=== PATIENT | female | born 2000 | race Caucasian/White ===

== ENCOUNTER 2021-06-19 04:04 | Emergency (ER) | payer OTHER, SELFPAY ==
[2021-06-19 04:08] VITALS: BP 131/77; PULSE 108; RESP 16; TEMP 37.2; O2SAT 99; BMI 30.2
--- NOTE | 2021-06-19 04:25 | ED_ITS ---
HPI - Extremity Problem General Chief complaint: Extremity Injury, Upper Stated complaint: nail completely broken off Time Seen by Provider: 06/19/21 04:16 Source: patient Mode of arrival: ambulatory Limitations: no limitations History of Present Illness HPI Narrative: Patient comes to the emergency room complaining of pain in her right thumb. Patient states that 2 days ago she bumped her finger, the acrylic nail which is glued to the real nail, lifted up the nail. Patient complaining of localized pain. Patient denies pus drainage. No finger pain. Related Data Allergies Allergy/AdvReac Type Severity Reaction Status Date / Time diclofenac Allergy Rash Verified 06/19/21 04:11 Review of Systems 2 Review of Systems: Constitutional : No Weight loss, No Fever, No Chills, No Night Sweats, No Fatigue, No Malaise ENT/Mouth : No Hearing loss, No Ear Pain, No Nasal Congestion, No Sinus Pain, No Hoarseness, No sore throat, No Rhinorrhea, No Swallowing Difficulty Eyes: No Eye Pain, No Swelling, No Redness, No Foreign Body, No Discharge, No Vision Changes Cardiovascular : No Chest Pain, No SOB, No Dyspnea on Exertion, No Orthopnea, No Edema, No Palpitations Respiratory : No Cough, No Sputum, No Wheezing, No Smoke Exposure, No Dyspnea Gastrointestinal : No Nausea, No Vomiting, No Diarrhea, No Constipation, No abdominal Pain, No Hematochezia, No Melena Genitourinary : no irregular bleeding, No Dysuria, No Urinary Frequency, No Hematuria, No Urinary Incontinence, No Urgency, No Flank Pain, No Urinary Flow Changes, No Hesitancy Musculoskeletal : No joint pain, No Myalgias, No Joint Swelling Skin : Complaining of right thumb fingernail pain Neuro : No Weakness, No Numbness, No Paresthesias, No Loss of Consciousness, No Dizziness, No Headache Psych : No Anxiety/Panic, No Depression, No SI/HI/AH/VH, No Social Issues, Heme/Lymph: No Bruising, No Bleeding,No Lymphadenopathy Endocrine : No Polyuria, No Polydipsia, No Temperature Intolerance PMFSH Past Medical History Medical History No known health problems Social History Social History Advance Directives: No Advance Directives Information Provided: Yes Patient : No Physical Exam Vital Signs: Vital Signs: Last Vital Signs Temp 98.9 F 03/13/22 04:08 Pulse 108 H 06/19/21 04:08 Resp 16 06/19/21 04:08 BP 131/77 06/19/21 04:08 Pulse Ox 99 06/19/21 04:08 BMI result Body Mass Index 30.2 Const: Other: Constitutional : No Weight loss, No Fever, No Chills, No Night Sweats, No Fatigu e, No Malaise ENT/Mouth : No Hearing loss, No Ear Pain, No Nasal Congestion, No Sinus Pain, No Hoarseness, No sore throat, No Rhinorrhea, No Swallowing Difficulty Eyes: No Eye Pain, No Swelling, No Redness, No Foreign Body, No Discharge, No Vision Changes Cardiovascular : No Chest Pain, No SOB, No Dyspnea on Exertion, No Orthopnea, No Edema, No Palpitations Respiratory : No Cough, No Sputum, No Wheezing, No Smoke Exposure, No Dyspnea Gastrointestinal : No Nausea, No Vomiting, No Diarrhea, No Constipation, No abdominal Pain, No Hematochezia, No Melena Genitourinary : no irregular bleeding, No Dysuria, No Urinary Frequency, No Hematuria, No Urinary Incontinence, No Urgency, No Flank Pain, No Urinary Flow Changes, No Hesitancy Musculoskeletal : No joint pain, No Myalgias, No Joint Swelling Skin : No Skin Lesions. Half of the nail is lifted. There are no signs of infection. Neuro : No Weakness, No Numbness, No Paresthesias, No Loss of Consciousness, No Dizziness, No Headache Psych : No Anxiety/Panic, No Depression, No SI/HI/AH/VH, No Social Issues, Heme/Lymph: No Bruising, No Bleeding,No Lymphadenopathy Endocrine : No Polyuria, No Polydipsia, No Temperature Intolerance Course Course Course Narrative: I discussed with the patient that the options of treatment are to remove the whole nail along with acrylic nail, which would leave the it now exposed and will be very tender, versus leaving it as it is and allowing the nail to follow up by itself. I discussed with the patient, that leaving the nail as it is and covering it with Vaseline ointment would offer protection and comfort. to the bed nail. Discussed with the patient if she develops any signs of infection she needs to come back to emergency room. Patient was given bacitracin ointment small packets Discharge Plan Discharge Clinical Impression: Nail avulsion, finger Patient Disposition: Home, Self-Care Instructions: Nail Avulsion (ED) Additional Instructions: If you see any signs of infection such as redness, increased pain, pus drainage, fever , please return to emergency room immediately. Otherwise, follow-up with your primary care physician tomorrow. If you have any worsening or new symptoms, please return to the emergency room or call 911
--- NOTE | 2021-06-19 04:39 | PC.NURSE ---
Pt leaving ED without discharge paperwork after being evaluated by MD. While NATA Pendleton was cleaning room, pts wallet was found. This RN attempted to call pts cell phone number to let her know however the call when to voicemail. This RN leaving a message. NATA Pendleton leaving wallet with security.
== END 2021-06-19 04:43 | disposition home or self-care (01) ==
PROVIDERS: Emergency Provider Emergency Medicine; PCP Internal Medicine
DX: S61.101A Unspecified open wound of right thumb with damage to nail, initial encounter (principal); Y29.XXXA Contact with blunt object, undetermined intent, initial encounter; Y93.9 Activity, unspecified; Y92.9 Unspecified place or not applicable; Y99.9 Unspecified external cause status
CPT/HCPCS: 99283

== ENCOUNTER 2022-06-19 17:50 | Emergency (ER) | payer OTHER, SELFPAY | END 2022-06-19 20:41 | disposition left against medical advice (07) | LOC: HO.ED 20:40 | PROVIDERS: Emergency Provider Emergency Medicine; PCP Family Medicine | DX: M79.646 Pain in unspecified finger(s) (principal) ==

== ENCOUNTER 2023-11-23 10:10 | Outpatient (REF) | payer OTHER, SELFPAY ==
[2023-11-23 14:26] LABS: MANUAL DIFF FLAG NO
[2023-11-23 14:33] LABS: Basophils Percent Auto 0.6 % (0-2); Eosinophils Absolute Auto 0.1 X10*3/uL (0.0-0.4); Eosinophils Percent Auto 0.7 % (0-4); Hematocrit 39.4 % (37.0-47.0); Imm Gran Abs Auto 0.02 X10*3/uL (0.00-0.03); Imm Gran Pct Auto 0.3 % (0.0-0.4); Lymphocytes Absolute Auto 3.4 X10*3/uL (1.2-4.9); Lymphocytes Percent Auto 46.3 % (20-40); Mean Corpuscular Hemoglobin 29.5 pg (27.0-33.0); Mean Corpuscular Volume 89.5 fL (80.0-98.0); Mean Platelet Volume 9.2 fL (9.4-12.3); Monocytes Absolute Auto 0.5 X10*3/uL (0.1-1.2); Monocytes Percent Auto 6.5 % (2-11); Neutrophils Absolute Auto 3.3 x10*3/uL (2.0-8.3); Neutrophils Percent Auto 45.6 % (45-73); Platelet Count 411 X10*3/uL (160-400); Red Cell Distribution Width 13.4 % (11.0-16.0); White Blood Count 7.2 X10*3/uL (4.8-10.8)
[2023-11-23 15:11] LABS: Alanine Aminotransferase 25 U/L (0-31); Albumin Level 4.1 g/dL (3.5-5.0); Alkaline Phosphatase 95 U/L (39-117); Anion Gap 11 (12-20); Aspartate Amino Transferase 21 U/L (5-31); Bilirubin Direct 0.2 mg/dL (0.0-0.5); Bilirubin Total 0.4 mg/dL (0.0-1.0); Blood Urea Nitrogen 8 mg/dL (9-16); Calcium 9.2 mg/dL (8.4-10.2); Carbon Dioxide 25 mmol/L (22-29); Chloride 106 mmol/L (96-108); Cholesterol 179 mg/dL (<200); Estimated Glomerular Filt Rate > 60; Glucose Fasting 100 mg/dL (60-99); HDL Cholesterol 52 mg/dL (>40); LDL Cholesterol Calculated 113 mg/dL (<100); Potassium 4.2 mmol/L (3.3-5.1); Sodium 138 mmol/L (135-145); Total Protein 7.4 g/dL (6.5-8.0); Triglycerides 74 mg/dL (<150)
[2023-11-23 15:49] LABS: Estimated Average Glucose 111 mg/dL; Hemoglobin A1c % 5.5 % (<6.0)
[2023-11-23 15:59] LABS: Insulin 16 uU/mL (2-29); TSH reflex Free T4 1.33 uIU/mL (0.32-4.0); Vitamin D 25-OH Total 37.5 ng/mL (>30)
== END 2023-11-23 10:11 | disposition home or self-care (01) ==
LOC: HO.CHCLDS 10:10
PROVIDERS: Visit Provider Pediatrics
DX: R22.41 Localized swelling, mass and lump, right lower limb (principal); E66.9 Obesity, unspecified; Z13.1 Encounter for screening for diabetes mellitus
CPT/HCPCS: 36415; 80048; 80061; 80076; 82306; 83036; 83525; 84443; 85025

== ENCOUNTER 2023-11-27 14:09 | Outpatient (REF) | payer OTHER, SELFPAY ==
--- NOTE | ~2023-11-27 | US_ITS ---
EXAMINATION: ULTRASOUND SOFT TISSUES RIGHT ANTERIOR MID THIGH Around what is Right anterior mid thigh lump, patient has felt area of concern for over a year, no change in size. COMPARISON: None available. TECHNIQUE: Targeted ultrasound images were obtained by the benefits analyst of the area of concern as indicated by the patient in the right anterior mid thigh. Radiologist was not in attendance. Images were later provided for interpretation. FINDINGS: No discrete mass or fluid collection identified in the area of concern indicated by the patient in the anterior mid right thigh. US/US extremity nonvascular IMPRESSION: 1. No discrete mass or fluid collection identified in the area of concern indicated by the patient in the anterior mid right thigh. 2. Decisions regarding further imaging, treatment or biopsy should be based on the clinical exam, as not all abnormalities are detectable on ultrasound studies. Electronically signed by: Renata David MD 12/12/2023 05:59 AM EDT
== END 2023-11-27 14:10 | disposition home or self-care (01) ==
LOC: HO.US 14:09
PROVIDERS: PCP Pediatrics; Visit Provider Pediatrics
DX: R22.41 Localized swelling, mass and lump, right lower limb (principal)
CPT/HCPCS: 76882

== ENCOUNTER 2023-12-27 23:35 | Emergency (ER) | payer OTHER, SELFPAY ==
--- NOTE | 2023-12-27 | ECG_ITS ---
Test Reason : CHEST PAIN Blood Pressure : / mmHG Vent. Rate : 107 BPM Atrial Rate : 107 BPM P-R Int : 174 ms QRS Dur : 080 ms QT Int : 344 ms P-R-T Axes : 054 014 024 degrees QTc Int : 459 ms Sinus tachycardia Anterior infarct , age undetermined Abnormal ECG No previous ECGs available Referred By: Generic ED Physician Electronically Signed By:LARA STARK
[2023-12-27 23:45] VITALS: BP 135/84; PULSE 104; RESP 20; TEMP 37.1; O2SAT 97; BMI 40.7
[2023-12-27 23:49] LABS: MANUAL DIFF FLAG NO
[2023-12-27 23:51] LABS: Basophils Absolute Auto 0.1 X10*3/uL (0.0-0.2); Basophils Percent Auto 0.5 % (0-2); Eosinophils Absolute Auto 0.1 X10*3/uL (0.0-0.4); Eosinophils Percent Auto 0.6 % (0-4); Hematocrit 37.4 % (37.0-47.0); Hemoglobin 12.3 g/dl (12.0-16.0); Imm Gran Abs Auto 0.03 X10*3/uL (0.00-0.03); Imm Gran Pct Auto 0.3 % (0.0-0.4); Lymphocytes Absolute Auto 4.5 X10*3/uL (1.2-4.9); Lymphocytes Percent Auto 44.8 % (20-40); Mean Corpuscular HGB Conc 32.9 g/dl (31.0-35.0); Mean Corpuscular Hemoglobin 29.6 pg (27.0-33.0); Mean Corpuscular Volume 89.9 fL (80.0-98.0); Monocytes Absolute Auto 0.8 X10*3/uL (0.1-1.2); Monocytes Percent Auto 7.5 % (2-11); Neutrophils Absolute Auto 4.7 x10*3/uL (2.0-8.3); Neutrophils Percent Auto 46.3 % (45-73); Platelet Count 410 X10*3/uL (160-400); Red Blood Count 4.16 X10*6/uL (4.20-5.50); Red Cell Distribution Width 13.3 % (11.0-16.0); White Blood Count 10.1 X10*3/uL (4.8-10.8)
[2023-12-28 00:10] LABS: Alanine Aminotransferase 21 U/L (0-31); Alkaline Phosphatase 94 U/L (39-117); Anion Gap 9 (12-20); Aspartate Amino Transferase 17 U/L (5-31); Bilirubin Total 0.3 mg/dL (0.0-1.0); Blood Urea Nitrogen 11 mg/dL (9-16); Calcium 9.3 mg/dL (8.4-10.2); Carbon Dioxide 28 mmol/L (22-29); Chloride 106 mmol/L (96-108); Creatinine Clr Calc Pharmacy 137.7; Estimated Glomerular Filt Rate > 60; Glucose Random 157 mg/dL (60-115); Potassium 3.8 mmol/L (3.3-5.1); Sodium 139 mmol/L (135-145); Total Protein 7.3 g/dL (6.5-8.0)
[2023-12-28 00:17] LABS: HCG Quantitative < 2 mIU/mL; Troponin-I High Sensitivity < 2.7 ng/L (<3.5-17.0)
--- NOTE | 2023-12-28 01:43 | ED_ITS ---
HPI - Chest Pain General Chief Complaint: Chest Pain Stated Complaint: chest pain Time Seen by Provider: 12/28/23 01:40 Source: patient Mode of arrival: ambulatory Limitations: no limitations History of Present Illness ED Provider: rigoberto CASTELLANO narrative: Patient 23 years old complaining of left-sided chest pain last 2 weeks difficulty breathing for more than a month complaining of pain getting worse prior to arrival no leg swelling no history of blood clot Related Data Previous Rx's ?Medication ?Instructions ?Recorded hydroxyzine HCl 50 mg tablet 50 mg PO BEDTIME PRN anxiety/sleep 12/28/23 #30 tabs Allergies Allergy/AdvReac Type Severity Reaction Status Date / Time diclofenac Allergy Rash Verified 12/27/23 23:48 Review of Systems 2 Review of Systems: Yes all other systems are reviewed and are negative PMFSH Past Medical History Medical History No known health problems Social History Social History Smoked in Last 30 Days: No Use of substances other than those prescribed or required for medical reasons: No Advance Directives: No Advance Directives Information Provided: No Physical Exam 2 Vital Signs: Vital Signs: Last Vital Signs Temp 98.8 F 12/28/23 02:26 Pulse 96 12/28/23 02:26 Resp 18 12/28/23 02:26 BP 134/79 12/28/23 02:26 Pulse Ox 99 12/28/23 02:26 O2 Del Method Room Air 12/28/23 02:26 BMI result Body Mass Index 40.7 Appearance: Alert. Oriented X3. No acute distress. Eyes: PERRLA, No Nystagmus ENT: Pharynx normal. Oral Mucosa moist Neck: Normal inspection. Neck supple. CVS: Normal heart rate and rhythm. Pulses normal. Respiratory: No respiratory distress. Equal air entry bilateral, no wheezing/rales/rhonchi Abdomen: Soft and nontender. Bowel sounds are present, no mass palpable, no CVA tenderness Skin: Skin warm and dry. Normal skin color. Normal skin turgor. Extremities: No lower extremity edema. No calf tenderness Neuro: Oriented X 3. No motor deficit. No sensory deficit.No cerebellar signs , cranial nerves II-XII intact Medical Decision Making Medical Decision Making MDM Narrative: Patient's heart score of 0 with atypical chest pain cardiac enzymes negative EKG negative for acute came low risk for PE discharge patient home likely has anxiety Differential Diagnosis Differential Diagnoses: The differential diagnosis associated with the presentation includes Lab Data [facility] Lab Attestation statement: I reviewed the patient's lab results. 12/27/23 23:44 12/27/23 23:44 Labs: Lab Results 12/27/23 Range/Units 23:44 WBC 10.1 (4.8-10.8) X10*3/uL RBC 4.16 L (4.20-5.50) X10*6/uL Hgb 12.3 (12.0-16.0) g/dl Hct 37.4 (37.0-47.0) % MCV 89.9 (80.0-98.0) fL MCH 29.6 (27.0-33.0) pg MCHC 32.9 (31.0-35.0) g/dl RDW 13.3 (11.0-16.0) % Plt Count 410 H (160-400) X10*3/uL MPV 9.0 L (9.4-12.3) fL Immature Gran % (Auto) 0.3 (0.0-0.4) % Neut % (Auto) 46.3 (45-73) % Lymph % (Auto) 44.8 H (20-40) % [place] % (Auto) 7.5 (2-11) % Eos % (Auto) 0.6 (0-4) % Baso % (Auto) 0.5 (0-2) % Lymph # (Auto) 4.5 (1.2-4.9) X10*3/uL [place] # (Auto) 0.8 (0.1-1.2) X10*3/uL Eos # (Auto) 0.1 (0.0-0.4) X10*3/uL Baso # (Auto) 0.1 (0.0-0.2) X10*3/uL Abs Immat Gran (auto) 0.03 (0.00-0.03) X10*3/uL Absolute Neuts (auto) 4.7 (2.0-8.3) x10*3/uL Absolute Nucleated RBC 0.000 (0.0-0.012) X10*3/uL Nucleated RBC % (auto) 0.0 (0.0-0.2) /100WBC Sodium 139 (135-145) mmol/L Potassium 3.8 (3.3-5.1) mmol/L Chloride 106 (96-108) mmol/L Carbon Dioxide 28 (22-29) mmol/L Anion Gap 9 L (12-20) BUN 11 (9-16) mg/dL Creatinine 0.74 (0.5-1.4) mg/dL Estim Creat Clear Calc 137.7 Estimated GFR > 60 Random Glucose 157 H (60-115) mg/dL Calcium 9.3 (8.4-10.2) mg/dL Total Bilirubin 0.3 (0.0-1.0) mg/dL AST 17 (5-31) U/L ALT 21 (0-31) U/L Alkaline Phosphatase 94 (39-117) U/L Troponin I High Sens < 2.7 (<3.5-17.0) ng/L Total Protein 7.3 (6.5-8.0) g/dL Albumin 4.0 (3.5-5.0) g/dL Beta HCG, Quant < 2 mIU/mL Independent Interpretation I performed an independent interpretation of an: EKG Interpretation: Sinus tachycardia heart rate of 107 beats per minute normal interval normal axis no acute STT wave changes no acute ischemia Discharge Plan Discharge Clinical Impression: Atypical chest pain, Anxiety Patient Disposition: Home, Self-Care Instructions: Chest Pain (ED), Anxiety (ED) Additional Instructions: Take medication for anxiety as prescribed Follow up with your PCP for evaluation as needed Your workup is negative for acute coronary event Prescriptions: New hydroxyzine HCl 50 mg tablet 50 mg PO BEDTIME PRN (Reason: anxiety/sleep) Qty: 30 0RF Stand Alone Forms: Work/School Release Interventions: ED Discharge Assessment Last Done: 12/28/23 02:26 Discharge Date/Time: 12/28/23 02:26 Print Language: Slovak
[2023-12-28 01:45] VITALS: BP 134/79; PULSE 96; RESP 18; TEMP 37.1; O2SAT 99
--- NOTE | 2023-12-28 01:46 | MHC.EDTECH ---
pt changed over into hospital attire, vitals done and pt placed on overhauler helper.
[2023-12-28 02:26] VITALS: BP 134/79; PULSE 96; RESP 18; TEMP 37.1; O2SAT 99
== END 2023-12-28 02:26 | disposition home or self-care (01) ==
LOC: HO.ED 12-28 02:27
PROVIDERS: Emergency Provider Internal Medicine; PCP Pediatrics
DX: R07.89 Other chest pain (principal); R06.02 Shortness of breath; F41.9 Anxiety disorder, unspecified; R10.2 Pelvic and perineal pain; Z79.899 Other long term (current) drug therapy
CPT/HCPCS: 36415; 80053; 84484; 84702; 85025; 93005; 99283; 99284

== ENCOUNTER 2024-05-08 07:38 | Outpatient (REF) | payer OTHER, SELFPAY ==
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
--- OUTSIDE RECORDS SUMMARY | 2024-05-08 10:40 | XMS_ITS | Clinical Summary ---
Author Organization [facility] Address [address] [place] [address] Care Team Providers Care Marine Diesel Technician Name Role Phone Unavailable Primary Care Provider Unavailabl e Social History Tobacco Use Types Packs/Day Years Used Date Smoking Tobacco: Never Assessed Sex and Gender Information Value Date Recorded Sex Assigned at Not on file Gender Identity Not on file Sexual Orientation Not on file Plan of Treatment Health Maintenance Due Date Last Done Comments Gonorrhea/Chlamydia Screening 2001 HPV Vaccines (1 - 3-dose series) 2016 DTaP,Tdap,and Td Vaccines (1 - Tdap) 2020 Hepatitis B Vaccines (1 of 3 - 19+ 3-dose series) 2020 Cervical Cancer Screening: P ap Smear 2022 Depression Screening 05/03/2023 HIV Screening 05/03/2023 Hepatitis C Screening 05/03/2023 Social Influencers of Health Screening 05/03/2023 COVID-19 Vaccine ( - 2023-2 5 season) 2023 Influenza Vaccine (#1) 2023 HIB Vaccines Aged Out No longer eligi ble based on patient's age to complete this topic Hepatitis A Vaccines Aged Out No long er eligible based on patient's age to complete this topic IPV Vaccines Aged Out No longer eligi ble based on patient's age to complete this topic MMR Vaccines Aged Out No longer eligi ble based on patient's age to complete this topic Meningococcal ACWY Vaccine Aged Out N o longer eligible based on patient's age to complete this topic Pneumococcal Vaccine: Pediat rics (0 to 5 Years) and At-Risk Patients (6 to 64 Years) Aged Out No longer eligible b ased on patient's age to complete this topic RSV Immunization Patients Un cassi 20 months Aged Out No longer eligible b ased on patient's age to complete this topic Varicella Vaccines Aged Out No longer eligible based on patient's age to complete this topic
--- OUTSIDE RECORDS SUMMARY | 2024-05-08 10:40 | XMS_ITS | Continuity of Care Document ---
Author Organization [facility] al Address [address] [place] [address]- Support Name Relationship Address Phone GARTH MARTÍNEZ mother Unknown Unavailable ADEJIM EKREM father Unknown Unavailable ADEAYAD FERNANDEZTE mother Unknown Unavailable ADEJIM, ZYRAFETE mother Unknown Unavailable MAURICIO ZYRAFETE Personal Relationship Unknown Berenice vailable MANPREET MARTÍNEZ Personal Relationship Unknown Unavai lable Encounter [facility] Date(s): 04/28/24 - 04/29/[address] [address]- Discharge Disposition: A-D/C Home Attending Physician: Tameka Zambrano DO Admitting Physician: Tameka Zambrano DO Referring Physician: Not on Staff, Referring MD Encounter Type: Disch ES Allergies, Adverse Reactions, Alerts Substance Criticality Severity Reaction Reaction Severity Status diclofenac Active Immunizations Given and Recorded Vaccine Date Status Refusal Reason tetanus/diphtheria/pertussis, acel(Tdap) 06/21/22 Given Medications Motrin Tablet 400 mg, By Mouth, 3 times a day, PRN, Refills 0, Maintenance, Pain , Mild, 04/28/24 11:00:00 PM EST,Partial fill upon patient request if the prescription is for a schedule II opioid drug. Start Date: 04/28/24 Status: Ordered Repeat number: 1 Problem List Condition Confirmation Course Effective Dates Status Health St atus Informant Severe obesity Confirmed Active Results Orders for Microbiology Reports Name Date Group A Strep Screen and Culture 04/28/24 Microbiology Reports TEST:Group A Strep Screen and Culture STATUS:Auth (Verified) BODY SITE: SOURCE:THROAT COLLECTED DATE/TIME:04/28/24 10:56 PM Group A Strep Screen and Culture SPECIMEN DESCRIPTION : THROAT SWAB SPECIAL REQUESTS : NONE DIRECT EXAM : RAPID GROUP A ANTIGEN RESULT IS NEGATIVE, CULTURE SENT TO REFERENCE LAB CULTURE : RAPID GROUP A ANTIGEN RESULT IS NEGATIVE, CULTURE SENT TO REFERENCE LAB REPORT STATUS : FINAL 04/28/2024 Vital Signs Most recent to oldest [Reference Range]: 1 2 Height 160 cm (04/28/24 11:59 PM) 160 cm (04/28/24 10:55 PM) Weight 112.2 kg (04/28/24 10:55 PM) Oxygen Saturation [94-100 %] 99 % (04/28/24 11:59 PM) 99 % (04/28/24 10:55 PM) Pulse Rate [55-90 bpm] 79 bpm (04/28/24 11:59 PM) 84 bpm (04/28/24 10:55 PM) Blood Pressure [90-138/55-84 mm Hg] 136/ 89mm Hg (04/28/24 11:59 PM) 125/92mm Hg (04/28/24 10:55 PM) Respiratory Rate [16-30 br/min] 18 br/mi n (04/28/24 10:55 PM) Temperature [96.8-100.4 DegF] 98.2 DegF (04/28/24 11:59 PM) 97.8 DegF (04/28/24 10:55 PM) Mode of Delivery (Oxygen) Room air (04/28/24 11:59 PM) Room air (04/28/24 10:55 PM) Blood pressure sites Arm, left (04/28/24 11:59 PM) Arm, left (04/28/24 10:55 PM) Temperature Route Oral (04/28/24 11:59 PM) Temporal (04/28/24 10:55 PM) Dry Weight 112.2 kg (04/28/24 10:55 PM) Weight Obtained Via Standing scale (04/28/24 10:55 PM) Dry Weight Obtained Via Standing scale (04/28/24 10:55 PM) Social History Social History Type Response Smoking Status Never (less than 100 in lifetime); Tobacco user in household: No entered on: 02/14/18 Sex Sex Representation Female (finding) Note * Tameka Zambrano DO: PERFORM Event Display: Patient Education Leaflets Authored Date: [id number] Acute Viral Pharyngitis (Sore Throat) ?? [id number] Acute Viral Pharyngitis (Sore Throat) You or your child have a sore throat (pharyngitis). This infection is caused by a virus. It??can cause throat pain that is worse when swallowing, aching all over, headache,??and fever. The infection may be spread by coughing, kissing,??or touching others after touching your mouth or nose. Antibiotic medicines don't work against viruses. They are not used for treating this illness. Home care ??? If symptoms are severe, you or your child should rest at home. Return to work or school when you or your child feel well enough.? You or your child should drink plenty of fluids to prevent dehydration. ??? Adults and children 5 years and older can use throat lozenges or numbing throat sprays to help reduce pain. Gargling with warm saltwater will also help reduce throat pain. Dissolve 1/2 teaspoon of salt in 1 glass of warm water. Children can sip on juice or an ice pop. Children 5 years and older can also suck on a lollipop or hard candy. (Hard candy and lozenges can be a choking hazard in children younger than 5 years.) ??? Don???t eat salty or spicy foods or give them to your child. These can be irritating to the throat. Medicines for a child: You can give your child acetaminophen for fever, fussiness, or discomfort. In babies over 6 months of age, you may use ibuprofen or acetaminophen. If your child has chronic liver or kidney disease or ever had a stomach ulcer or gastrointestinal bleeding, talk with your child???s healthcare provider before giving these medicines. Aspirin should never be used by any child under 18 years of age who has a fever. It may cause severe liver damage and . Don't give your child any other medicine without first asking your child's provider. Medicines for an adult: You may use acetaminophen, naproxen, or ibuprofen to control pain or fever,unless another medicine was prescribed for this. If you have chronic liver or kidney disease or ever had a stomach ulcer or gastrointestinal bleeding, talk with your healthcare provider before using these medicines. ?? Follow-up care Follow up with a healthcare provider, or as advised, if you or your child aren't getting better over the next week. ?? When to get medical advice Call your healthcare provider right away if any of these occur: ??? Fever of 100.4??F (38??C) or higher, or as advised by the provider (see Fever and children below)? New or worsening ear pain, sinus pain, or headache ??? Painful lumps in the back of neck ??? Stiff neck ??? Lymph nodes are getting larger ??? Can???t open mouth wide due to throat pain ???New rash ??? Other symptoms are getting worse Call 911 Call 911 right away if any of these occur: ??? Trouble breathing or noisy breathing ??? Muffled voice ??? Can't swallow liquids, a lot of drooling, or any other symptoms that may mean worsening swelling in the throat ??? Signs of dehydration such as very dark urine or no urine, sunken eyes, dizziness ?? Fever and children Use a digital thermometer to check your child???s temperature. Don???t use a mercury thermometer. There are different kinds and uses of digital thermometers. They include: ??? Rectal. For children younger than 3 years, a rectal temperature is the most accurate. ??? Forehead (temporal). This works for children age 3 months and older. If a child under 3 months old has signs of illness, this can be used for a first pass. The provider may want to confirm with a rectal temperature. ??? Ear (tympanic). Ear temperatures are accurate after 6 months of age, but not before. ??? Armpit (axillary). This is the least reliable but may be used for a first pass to check a child of any age with signs of illness. The provider may want to confirm with a rectal temperature. ??? Mouth (oral). Don???t use a thermometer in your child???s mouth until they are at least 4 years old. Use the rectal thermometer with care. Follow the product maker???s directions for correct use. Insert it gently. Label it and make sure it???s not used in the mouth. It may pass on germs from the stool. If you don???t feel OK using a rectal thermometer, ask the healthcare provider what type to use instead. When you talk with any healthcare provider about your child???s fever, tell them which typeyou used. ?? Last Reviewed Date: 2021 ?? 3980-2429 The [employer]. All rights reserved. This information is not intended as a substitute for professional medical care. Always follow your healthcare professional's instructions. ?? Patient Care team information Care Team Personnel Name: Rebekah RHODES, Dyana Claabrese Position: [facility] MACHINE II TRIMMER MD Member Role: [employer] MACHINE II TRIMMER Physician Address: [address] [place] [address], [address] [facility] [address] Telecom: Name: Ruthy Addison Position: [facility] Outreach Member Role: [employer] Consulting Physician Care Team Related Persons Name: FRIDA MARTÍNEZ Name: GARTH MARTÍNEZ Name: GARTH MARTÍNEZ Insurance Providers Guarantor name: GARTH MARTÍNEZ Health Plan Information #: 1 Payer: [employer] NON [employer] Member Number: [id number] Policy Number: NA Group Number: [id number] Health Plan Information #: 2 Payer: [employer] NON H[employer] PLANS Member Number: [id number] Policy Number: NA Group Number: [id number]
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
--- OUTSIDE RECORDS SUMMARY | 2024-05-08 10:40 | XMS_ITS | Encounter Summary ---
Author Organization [employer] Address 75 [facility] 7 [place] [address] Care Team Providers Care Orthopedic Shoes Salesperson Name Role Phone Hoda Hay MD Primary Care Provider [phone] Reason for Visit * Reason Onset Date Comments Nurse Triage 02/13/2024 Encounter Details Date Type Department Care Team ([facility] Contact Info) Description 02/13/2024 [facility]phone [facility] [address] [place] [address] Hoda Hay MD [address] [place] [address] Nurse Triage Social History Tobacco Use Types [...] Telephone Encounter - Ramona Xavier RN - 02/13/2024 11:31 AM EST Triage call Pt reports skin lump under right arm pit which started several weeks ago with a reaction to antiperspirant spray from [employer]. Pt had a skin reaction to this product which was a rash, itchiness and a burning sensation. This skin lump started then and though has decreased to a small green pea size it still remains this size for 2 week now. Pt reports the lump is not itchy, not red, not gregorio nful. Pt is concerned that it remains and would like to have a provider look at this. ASK apt todaywith Dr. Baron @ 215pm. Insurance is verified as active prior to booking. Protocol Used: Skin Lump or Localized Swelling (Adult) Protocol-Based Disposition: See in Office or Video Visit within 3 Days Video visit not offered Positive Triage Question: * Small swelling or lump present > 1 week * All higher-acuity triage questions were negative Care Advice Discussed: * Reasons To Call Back - Fever occurs - Spreading redness occurs - Swelling becomes painful - Swelling lasts over 1 week - You become worse * Telephone Encounter - Smith Esparza - 02/13/2024 10:43 AM EST Symptom: Skin Lump Outcome: Schedule an appointment to be seen within 3 days Reason: Caller denied all higher acuity questions The caller accepted this outcome. documented in this encounter Plan of Treatment Not on file documented as of this encounter Visit Diagnoses Not on filedocumented in this encounter Additional Health Concerns Assessment Noted Time PHQ-9 Depression Total Score: 5 11/22/19 24 10:32 AM EDT documented as of this encounter Care Teams Orthopedic Shoes Salesperson Relationship Specialty Start Date End Date Hoda Hay MD [address] [place] [address] PCP - General Family Medicine 08/18/19 documented as of this encounter
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
--- OUTSIDE RECORDS SUMMARY | 2024-05-08 10:41 | XMS_ITS | Encounter Summary ---
Author Organization [employer] Address [address] [facility] 7t [place] [address] Care Team Providers Care Adult Care Manager Name Role Phone Hoda Hay MD Primary Care Provider [phone] Encounter Details Date Type Department Care Team (Latest Contact Info) Description 05/06/2024 Travel Social History Tobacco Use Types Packs/Day Years [...] AM EDT documented as of this encounter Plan of Treatment Not on file documented as of this encounter Visit Diagnoses Not on filedocumented in this encounter Additional Health Concerns Assessment Noted Time PHQ-9 Depression Total Score: 5 11/22/19 24 10:32 AM EDT documented as of this encounter Care Teams Adult Care Manager Relationship Specialty Start Date End Date Hoda Hay MD [address] [place] [address] PCP - General Family Medicine 08/18/19 documented as of this encounter
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
--- OUTSIDE RECORDS SUMMARY | 2024-05-08 10:41 | XMS_ITS | Encounter Summary ---
Author Organization [employer] Address [address] [place] [address] 7 [place] [address] Care Team Providers Care Pictures Editor Name Role Phone Hoda Hay MD Primary Care Provider [phone] Encounter Details Date Type Department Care Team (Latest Contact Info) Description 04/07/[address] [facility]VERSION[facility] Dental, Provider, DDS Social History Tobacco Use Types Packs/Day Years Used Date Smoking Tobacco: Never Assessed Comments Unknown Sex and Gender Information Value Date Recorded Sex Assigned at Female 02/06/2022 10:21 AM EDT Legal Sex Female 10:21 AM EDT Gender Identity Female 02/06/2022 10:21 AM EDT Sexual Orientation Straight 02/06/2022 10 :21 AM EDT documented as of this encounter Plan of Treatment Not on file documented as of this encounter Visit Diagnoses Not on filedocumented in this encounter Care Teams Pictures Editor Relationship Specialty Start Date End Date Hoda Hay MD [address] [place] [address] PCP - General Family Medicine 08/18/19 documented as of this encounter
== END 2024-05-08 07:39 | disposition home or self-care (01) ==
LOC: HO.XRAY 07:38
PROVIDERS: Visit Provider Internal Medicine
DX: M22.2X2 Patellofemoral disorders, left knee (principal)
CPT/HCPCS: 73560

== ENCOUNTER → 2024-05-08 07:44 | Outpatient (BNV) | payer OTHER, SELFPAY | PROVIDERS: Visit Provider Radiology Diagnostic Radiology | DX: M70.42 Prepatellar bursitis, left knee (principal); M25.562 Pain in left knee | CPT/HCPCS: 73560 ==

== ENCOUNTER 2024-11-18 14:20 | Outpatient (REF) | payer OTHER, SELFPAY ==
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
--- OUTSIDE RECORDS SUMMARY | 2024-11-18 15:15 | XMS_ITS | Clinical Summary ---
Author Organization [facility] Address [address] [place] [address] Care Team Providers Care Director Of User Experience Name Role Phone Unavailable Primary Care Provider Unavailabl e Social History Tobacco Use Types Packs/Day Years Used Date Smoking Tobacco: Never Assessed Comments Unknown Sex and Gender Information Value Date Recorded Sex Assigned at Not on file Legal Sex Female 8:05 PM EST Gender Identity Not on file Sexual Orientation Not on file Plan of Treatment Health Maintenance Due Date Last Done Comments Gonorrhea/Chlamydia Screening 2001 HPV Vaccines (1 - 3-dose series) 2016 Meningococcal B Vaccine (1 o f 2 - Standard) 2017 DTaP,Tdap,and Td Vaccines (1 - Tdap) 2020 Hepatitis B Vaccines (1 of 3 - 19+ 3-dose series) 2020 Cervical Cancer Screening: P ap Smear 2022 HIV Screening 05/03/2023 Hepatitis C Screening 05/03/2023 Social Influencers of Health Screening 05/03/2023 COVID-19 Vaccine ( - 2023-2 5 season) 2023 Depression Screening 04/09/2024 Influenza Vaccine (#1) 2024 HIB Vaccines Aged Out No longer eligi [...] 5 Years) and At-Risk Patients (6 to 49 Years) Aged Out No longer eligible b ased on patient's age to complete this topic RSV Immunization Patients Un cassi 20 months Aged Out No longer eligible b ased on patient's age to complete this topic Varicella Vaccines Aged Out No longer eligible based on patient's age to complete this topic
[2024-11-21 08:33] LABS: TS Negative Control Passed; TS Panel A 0; TS Panel B 0; TS Positive Control Passed; TSpotTB Negative (Negative)
== END 2024-11-18 14:21 | disposition home or self-care (01) ==
LOC: HO.CHCLDS 14:20
PROVIDERS: Visit Provider Pediatrics
DX: Z11.1 Encounter for screening for respiratory tuberculosis (principal)
CPT/HCPCS: 36415; 86481

== ENCOUNTER 2024-12-24 08:19 | Outpatient (REF) | payer OTHER, SELFPAY ==
--- OUTSIDE RECORDS SUMMARY | 2024-12-23 10:30 | XMS_ITS | Encounter Summary ---
Author Organization [employer] Address [address] [place] [address] [place] [address] Care Team Providers Care Community Health Navigator Name Role Phone Hoda Hay MD Primary Care Provider [phone] Reason for Referral * Consultation (Routine) - Closed Specialty Diagnoses / Procedures Referred By Contact Referred To Contact Chiropractic Medicine Diagnoses Chronic upper back pain Hoda Hay MD [address] [place] [address] Phone: tel: fax: [facility] [address] [place] [address] Phone: tel: fax: Referral ID Status Reason Start Date Expiration Date V isits Requested Visits Authorized [id number] Closed Specialty Services Required 12/23/2024 12/23/2025 1 1 Scheduling Instructions [facility] Encounter Details Date Type Department Care Team (Late st Contact Info) Description 12/23/2024 10:30 AM EDT Office Visit [facility]S [address] [place], [place] [phone] Hoda Hay MD [address] [place], [place] [phone] Chronic upper back pain (Primary Dx); Obesity, [...] the gym and working out with a hearing dog trainer which has been helpful for her [...] Upcoming Encounters Date Type Department Care Team ([facility] st Contact Info) Description 02/04/2025 9:45 AM EDT Procedure Visit [facility] [address] [place] [address] Hoda Hay MD [address] [place] [address] Scheduled Referrals Name Type Priority Associated Diagnoses [...] documented as of this encounter Care Teams Community Health Navigator Relationship Specialty Start Date End Date Hoda Hay MD [address] [place] [address] PCP - General Family Medicine 08/18/19 documented as of this encounter
--- NOTE | ~2024-12-24 | XR_ITS ---
EXAMINATION: XR KNEE, LEFT CLINICAL INFORMATION: M25.562 - Pain in left knee COMPARISON: Radiographs of the left knee on May 08, 2024 TECHNIQUE: AP view of the bilateral knees and sunrise view of the left knee. FINDINGS: Normal alignment. No fracture. Joint spaces are preserved. Overlying soft tissues appear unremarkable. XR/XR knee LT 2V IMPRESSION: No acute fracture or subluxation. Electronically signed by: Tammy Vargas MD 12/24/2024 12:03 PM EDT
--- OUTSIDE RECORDS SUMMARY | 2024-12-25 09:17 | XMS_ITS | Encounter Summary ---
Author Organization [employer] Address [address] [facility] 7 [place] [address] Care Team Providers Care Outside Sales Inspector Name Role Phone Hoda Hay MD Primary Care Provider [phone] Reason for Visit * Reason Onset Date Comments Nurse Triage 02/13/2024 Encounter Details Date Type Department Care Team ([facility] Contact Info) Description 02/13/2024 Telephone [facility] MEDICINE [address] [place] [address] Hoda Hay MD [address] [place] [address] Nurse Triage Social History Tobacco Use Types [...] Upcoming Encounters Date Type Department Care Team ([facility] st Contact Info) Description 02/04/2025 9:45 AM EDT Procedure Visit [facility] MED & PEDS [address] [place] [address] Hoda Hay MD [address] [place] [address] documented as of this encounter Visit Diagnoses Not on filedocumented in this encounter Additional Health Concerns Assessment Noted Time PHQ-9 Depression Total Score: 5 11/22/19 24 10:32 AM EDT documented as of this encounter Care Teams Outside Sales Inspector Relationship Specialty Start Date End Date Hoda Hay MD [address] [place] [address] PCP - General Family Medicine 08/18/19 documented as of this encounter
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
--- OUTSIDE RECORDS SUMMARY | 2024-12-25 09:17 | XMS_ITS | Clinical Summary ---
Author Organization [facility] Address [address] [place] [address] Care Team Providers Care X Ray Technologist Name Role Phone Unavailable Primary Care Provider [...] 05/03/2023 Social Influencers of Health Screening 05/03/2023 Depression Screening 04/09/2024 COVID-19 Vaccine ( - 2023-2 5 season) 2024 Influenza Vaccine (#1) 2024 RSV Immunization Adult Patie nts (1 - 1-dose 75+ series) 2076 HIB Vaccines Aged Out No longer eligi [...]
--- OUTSIDE RECORDS SUMMARY | 2024-12-25 09:17 | XMS_ITS | Clinical Summary ---
Author Organization [employer] Address [address] [facility] 7t [place] [address] Care Team Providers Care Principal Database Developer Name Role Phone Hoda Hay MD Primary Care Provider [phone] Allergies Active Allergy Reactions Criticality Noted Date [...] Description 12/23/2024 10:30 AM EDT Office Visit [facility] [address] [place] [address] Hoda Hay MD Chronic upper back pain (Primary Dx); Obesity, Class III, BMI 40-49.9 (morbid obesity) 12/23/2024 Travel 11/28/2024 Telephone [facility] [address] [place] [address] Hoda Hay MD Referral 11/20/2024 Telephone [facility] [address] [place] [address] Hoda Hay MD No Show 11/18/2024 Telephone [facility] [address] [place] [address] Hoda Hay MD Lab Orders 10/29/2024 11:15 AM EDT Office Visit [facility] [address] [place] [address] Hoda Hay MD Patellofemoral disorder of left knee (Primary Dx); Chronic pain of left knee; Dietary counseling; Exercise counseling 10/29/2024 Travel 10/28/2024 9:15 AM EDT Office Visit [facility] [address] [place] [address] Dakota Livingston MD Lump in armpit, right (Primary Dx); Allergic contact dermatitis due to other agents 10/28/2024 Travel 10/16/2024 Telephone [facility] [address] [place], [place] [phone] Hoda Hay MD Appointment Request from Last [...] Upcoming Encounters Date Type Department Care Team ([facility] st Contact Info) Description 02/04/2025 9:45 AM EDT Procedure Visit [facility] [address] [place] [address] Hoda Hay MD [address] [place] [address] Health Maintenance Due Date Last Done Comments [...] Results * T-SPOT??.TB (11/18/2024 2:23 PM EDT) [facility] T Spot TB Negative Negative [facility] Comment:A negative test resu lt does [...] as aquantitative test. TS PANEL A 0 [facility] TS PANEL B 0 [facility] Negative Control Passed [facility] Positive Control Passed [facility] Comment:For additional infor maldonado, please refer tohttp://education.riskmethods/faq/JEW315(This link is being provided for informational/educational purposes only.)THIS TEST WAS PERFORMED AT:[employer]/LMN-[id number] [place] [address]SXBSETPJAY HARRY MD,PHD 11/18/2024 2:23 PM EDT 11/18/2024 5:51 PM EDT us Hoda Hay MD LAB BLOOD ORDERABLES Final Re sult [facility] [address] [place] [address] [phone] * (ABNORMAL) Lipid Panel, Standard (11/23/2023 10:11 AM EDT) Triglycerides 74 <150 mg/dL [facility] Comment:Desirable Triglyceri de: less than 150 mg/dLBorderline High Triglyceride 150-199 mg/dLHigh Triglyceride: 200-499 mg/dLVery High Triglyceride: greater than or equal to 5OO mg/dL Cholesterol 179 <200 mg/dL [facility] Comment:Desirable Cholestero l: less than 200 mg/dLBorderline High Cholesterol: 200-239 mg/dLHigh Cholesterol: greater than 239 mg/dL LDL Cholesterol Calculated 113(H) <100 mg/dL [facility] Comment:Desirable LDL: less than 100 mg/dLNear Optimal/Above Optimal LDL: 110- 129 mg/dLBorderline High LDL: 130-159 mg/dLHigh LDL: 160-189 mg/dLVery High LDL: greater than or equal to 190 mg/dL HDL Cholesterol 52 >40 mg/dL [facility] Comment:Desirable HDL: great er than 40 mg/dL Note: This HDL assay may give artificially low results in patients with liver disease. Blood Venous blood specimen / Unknown 11/23/2023 10:11 AM EDT 11/23/2023 2:23 PM EDT us Hoda Hay MD LAB BLOOD ORDERABLES Final Re sult [facility] [address] [place] [address] [phone] from Last 3 Months or Most Recently Relevant to Health Maintenance Insurance [employer] PPO DENTAL - [employer] Care Teams Principal Database Developer Relationship Specialty Start Date End Date Hoda Hay MD [address] [place] [address] PCP - General Family Medicine 08/18/19
--- OUTSIDE RECORDS SUMMARY | 2024-12-25 09:17 | XMS_ITS | Encounter Summary ---
Author Organization [employer] Address 75 [facility] 7t [place] [address] Care Team Providers Care Econometrician Name Role Phone Hoda Hay MD Primary Care Provider [phone] Encounter Details Date Type Department Care Team [...] Upcoming Encounters Date Type Department Care Team ([facility] st Contact Info) Description 02/04/2025 9:45 AM EDT Procedure Visit [facility] [address] [place] [address] Hoda Hay MD [address] [place] [address] documented as of this encounter Visit Diagnoses Not on filedocumented in this encounter Additional Health Concerns Assessment Noted Time PHQ-9 Depression Total Score: 5 11/22/19 24 10:32 AM EDT documented as of this encounter Care Teams Econometrician Relationship Specialty Start Date End Date Hoda Hay MD [address] [place] [address] PCP - General Family Medicine 08/18/19 documented as of this encounter
--- OUTSIDE RECORDS SUMMARY | 2024-12-25 09:17 | XMS_ITS | Encounter Summary ---
Author Organization [employer] Address [address] [place] [address] 7 [place] [address] Care Team Providers Care Bottom Crane Operator Name Role Phone Hoda Hay MD Primary Care Provider [phone] Encounter Details Date Type Department Care Team (Latest Contact Info) Description 04/07/[address] [facility] CONVERSIONS Dental, Provider, DDS Social History [...] Description 02/04/2025 9:45 AM EDT Procedure Visit [facility] [address] [place] [address] Hoda Hay MD [address] [place] [address] documented as of this encounter Visit Diagnoses Not on filedocumented in this encounter Care Teams Bottom Crane Operator Relationship Specialty Start Date End Date Hoda Hay MD [address] [place] [address] PCP - General Family Medicine 08/18/19 documented as of this encounter
== END 2024-12-24 08:20 | disposition home or self-care (01) ==
LOC: HO.HOSX 08:19
PROVIDERS: Visit Provider Physician Assistant
DX: S80.02XA Contusion of left knee, initial encounter (principal); M94.262 Chondromalacia, left knee; M17.12 Unilateral primary osteoarthritis, left knee; V43.52XA Car driver injured in collision with other type car in traffic accident, initial encounter
CPT/HCPCS: 73560

== ENCOUNTER 2024-12-24 11:46 | Outpatient (AMB) | payer OTHER, SELFPAY ==
--- OUTSIDE RECORDS SUMMARY | 2024-12-23 10:30 | XMS_ITS | Encounter Summary ---
Author Organization [employer] Address [address] [place] [address] [place] [address] Care Team Providers Care Signal Processing Engineer Name Role Phone Hoda Hay MD Primary Care Provider [phone] Reason for Referral * Consultation (Routine) - Closed Specialty Diagnoses / Procedures Referred By Contact Referred To Contact Chiropractic Medicine Diagnoses Chronic upper back pain Hoda Hay MD [address] [place] [address] Phone: tel: fax: [facility] [address] [place] [address] Phone: tel: fax: Referral ID Status Reason Start Date Expiration Date V isits Requested Visits Authorized [id number] Closed Specialty Services Required 12/23/2024 12/23/2025 1 1 Scheduling Instructions [facility] Encounter Details Date Type Department Care Team (Late st Contact Info) Description 12/23/2024 10:30 AM EDT Office Visit [facility] MED & PEDS [address] [place], [place] [phone] Hoda Hay MD [address] [place], [place] [phone] Chronic upper back pain (Primary Dx); Obesity, Class III, BMI 40-49.9 (morbid obesity) Social History Tobacco Use Types Packs/Day Years [...] Q2 Not on file 12/10/2023 Comments Unknown Intention Date Recorded Wants to become (finding) 12/23 Sex and Gender Information Value Date Recorded Sex Assigned at Female 02/06/2022 10:21 AM EDT Legal Sex Female 10:21 AM EDT Gender Identity Female 02/06/2022 10:21 AM EDT Sexual Orientation Straight 02/06/2022 10 :21 AM EDT documented as of this encounter Last Filed Vital Signs Vital Sign Reading Time Taken Comments Blood Pressure 131/78 12/23/2024 10:33 AM EDT Pulse 90 12/23/2024 10:33 AM EDT Temperature 36.7 C (98.1 F) 12/23/2024 10:33 AM EDT Respiratory Rate 20 12/23/2024 10:33 AM EDT Oxygen Saturation - - Inhaled Oxygen Concentration - - Weight 111 kg (244 lb) 12/23/2024 10:33 AM EDT Height - - Body Mass Index 41.15 10/28/2024 9:22 AM EDT documented in this encounter Progress Notes * Hoda Hay MD - 12/23/2024 10:30 AM EDT Subjective Patient ID: Delphine Petersen is a 24 y.o. female who presents for chronic upper back pain issues. Delphine is a 24 y/o female patient of mine here for referral to chiropractor to be renewed. States has been going to the gym and working out with a business trainer which has been helpful for her mood and efforts to lose weight. She is also eating healthier than before. Patient was congratulated today. Patient has an appointment with Ortho tomorrow for her left chronic knee pain that she plans to attend. She is also scheduled for a soft tissue ultrasound of her right arm that was scheduled by walk-in provider. Review of Systems Constitutional: Negative for activity change, chills, fever and unexpected weight change. Respiratory: Negative for cough, shortness of breath and wheezing. Cardiovascular: Negative for chest pain, palpitations and leg swelling. Gastrointestinal: Negative for abdominal pain and blood in stool. Endocrine: Negative for polydipsia and polyuria. Genitourinary: Negative for decreased urine volume, difficulty urinating, dysuria and hematuria. Musculoskeletal: Positive for arthralgias and back pain. Negative for gait problem. Skin: Negative for color change and rash. Neurological: Negative for dizziness and headaches. Hematological: Negative for adenopathy. Psychiatric/Behavioral: Negative for dysphoric mood, hallucinations, sleep disturbance and suicidalideas. The patient is not nervous/anxious. Objective BP 131/78 (BP Location: Left arm, Patient Position: Sitting, BP Cuff Size: Adult) Pulse90 Temp 98.1 ??F (36.7 ??C) (Oral) Resp 20 Wt 244 lb (111 kg) LMP 11/24/2024 (Exact Date) BMI 41.15 kg/m?? Physical Exam Constitutional: General: She is not in acute distress. Appearance: Normal appearance. She is not ill-appearing. HENT: Head: Normocephalic. Right Ear: Tympanic membrane and ear canal normal. Left Ear: Tympanic membrane and ear canal normal. Nose: Nose normal. Mouth/Throat: Mouth: Mucous membranes are moist. Pharynx: No oropharyngeal exudate or posterior oropharyngeal erythema. Eyes: Extraocular Movements: Extraocular movements intact. Conjunctiva/sclera: Conjunctivae normal. Pupils: Pupils are equal, round, and reactive to light. Cardiovascular: Rate and Rhythm: Normal rate and regular rhythm. Pulses: Normal pulses. Heart sounds: Normal heart sounds. Pulmonary: Effort: Pulmonary effort is normal. No respiratory distress. Breath sounds: Normal breath sounds. Abdominal: Palpations: Abdomen is soft. Musculoskeletal: General: Normal range of motion. Cervical back: Normal range of motion. Right lower leg: No edema. Left lower leg: No edema. Skin: General: Skin is warm. Capillary Refill: Capillary refill takes less than 2 seconds. Neurological: General: No focal deficit present. Mental Status: She is alert and oriented to person, place, and time. Psychiatric: Mood and Affect: Mood normal. Behavior: Behavior normal. Thought Content: Thought content normal. Judgment: Judgment normal. Assessment/Plan Diagnoses and all orders for this visit: Chronic upper back pain Comments: New chiropractor referral done as per her request as she states has been helpful in the past. Orders: - Referral to Chiropractic; Future Obesity, Class III, BMI 40-49.9 (morbid obesity) Comments: Congratulated on working out and chaging diet.F/U with me for pap smear visit. documented in this encounter Plan of Treatment Upcoming Encounters Date Type Department Care Team ([facility] st Contact Info) Description 02/04/2025 9:45 AM EDT Procedure Visit [facility] [address] [place] [address] Hoda Hay MD [address] [place] [address] Scheduled Referrals Name Type Priority Associated Diagnoses Order Schedule Referral to Chiropractic Outpatient Referral Routine Chronic upper back pain Expected: 12/23/2024 (Approximate), Expires: 12/23/2025 documented as of this encounter Visit Diagnoses Diagnosis Chronic upper back pain- Primary Obesity, Class III, BMI 40-49.9 (morbid obesity) documented in this encounter Additional Health Concerns Assessment Noted Time PHQ-9 Depression Total Score: 5 11/22/19 24 10:32 AM EDT documented as of this encounter Care Teams Signal Processing Engineer Relationship Specialty Start Date End Date Hoda Hay MD [address] [place] [address] PCP - General Family Medicine 08/18/19 documented as of this encounter
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
[2024-12-24 11:58] VITALS: BMI 40.7
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
--- OUTSIDE RECORDS SUMMARY | 2024-12-24 15:15 | XMS_ITS | Encounter Summary ---
Author Organization [employer] Address [address] [place] [address] 7 [place] [address] Care Team Providers Care Reverse Unit Operator Name Role Phone Hoda Hay MD Primary Care Provider [phone] Encounter Details Date Type Department Care Team (Latest Contact Info) Description 04/07/2021 Abstract [facility] CONVERSIONS Dental, Provider, DDS Social History Tobacco Use Types Packs/Day Years Used Date Smoking Tobacco: Never Assessed Comments Unknown Sex and Gender Information Value Date Recorded Sex Assigned at Female 02/06/2022 10:21 AM EDT Legal Sex Female 10:21 AM EDT Gender Identity Female 02/06/2022 10:21 AM EDT Sexual Orientation Straight 02/06/2022 10 :21 AM EDT documented as of this encounter Plan of Treatment Upcoming Encounters Date Type Department Care Team ( st Contact Info) Description 02/04/2025 9:45 AM EDT Procedure Visit [facility] MED & PEDS [address] [place] [address] Hoda Hay MD [address] [place] [address] documented as of this encounter Visit Diagnoses Not on filedocumented in this encounter Care Teams Reverse Unit Operator Relationship Specialty Start Date End Date Hoda Hay MD [address] [place] [address] PCP - General Family Medicine 08/18/19 documented as of this encounter
--- OUTSIDE RECORDS SUMMARY | 2024-12-24 15:15 | XMS_ITS | Encounter Summary ---
Author Organization [employer] Address [address] [facility] [address] [place] [address] Care Team Providers Care Wood Fuel Pelletizer Name Role Phone Hoda Hay MD Primary Care Provider [phone] Encounter Details Date Type Department Care Team (Latest Contact Info) Description 12/23/2024 Travel Social History Tobacco Use Types Packs/Day [...] Upcoming Encounters Date Type Department Care Team ([facility] st Contact Info) Description 02/04/2025 9:45 AM EDT Procedure Visit [facility] MED & PEDS [address] [place] [address] Hoda Hay MD [address] [place] [address] documented as of this encounter Visit Diagnoses Not on filedocumented in this encounter Additional Health Concerns Assessment Noted Time PHQ-9 Depression Total Score: 5 11/22/19 24 10:32 AM EDT documented as of this encounter Care Teams Wood Fuel Pelletizer Relationship Specialty Start Date End Date Hoda Hay MD [address] [place] [address] PCP - General Family Medicine 08/18/19 documented as of this encounter
--- OUTSIDE RECORDS SUMMARY | 2024-12-24 15:15 | XMS_ITS | Clinical Summary ---
Author Organization [employer] Address [address] [facility] 7t [place] [address] Care Team Providers Care Vice President Of Talent Acquisition Name Role Phone Hoda Hay MD Primary Care Provider [phone] Allergies Active Allergy Reactions Criticality Noted Date Comments Diclofenac Rash Low 10/24/2011 Medications Semaglutide-Carlos ght Management (Wegovy) 0.25 MG/0.5ML solution auto-injectorIn dications:Obesi ty, Class III, BMI 40-49.9 (morbid obesity) Inject 0.25 mg under the skin 1 [...] 2 times daily. 90 g 4 Active triamcinolone (Kenalog) 0.1 % creamIndication s:Allergic contact dermatitis due to other agents Apply topically if needed in the morning and at bedtime (pain and swelling). 80 g 3 5 Active cetirizine (ZyrTEC) 10 MG tabletIndicatio ns:Allergic contact dermatitis due to other agents Take 1 tablet (10 mg) by mouth Once per day. 30 tablet 2 5 Active lidocaine-prilo venus (Emla) 2.5-2.5 % cream Apply topically bid prn pain 30 g 3 Active Active Problems Problem Noted Date Diagnosed Date [...] Encounters Date Type Department Care Team Description 12/23/2024 10:30 AM EDT Office Visit [facility] MED & PEDS [address] [place] [address] Hoda Hay MD Chronic upper back pain (Primary Dx); Obesity, Class III, BMI 40-49.9 (morbid obesity) 12/23/2024 Travel 11/28/2024 Telephone [facility] MED & PEDS [address] [place] [address] Hoda Hay MD Referral 11/20/2024 Telephone [facility] MED & PEDS [address] [place] [address] Hoda Hay MD No Show 11/18/2024 Telephone [facility] MED & PEDS [address] [place] [address] Hoda Hay MD Lab Orders 10/29/2024 11:15 AM EDT Office Visit [facility] MED [facility]EDS [address] [place] [address] Hoda Hay MD Patellofemoral disorder of left knee (Primary Dx); Chronic pain of left knee; Dietary counseling; Exercise counseling 10/29/2024 Travel 10/28/2024 9:15 AM EDT Office Visit [facility] MED & PEDS [address] [place] [address] Dakota Livingston MD Lump in armpit, right (Primary Dx); Allergic contact dermatitis due to other agents 10/28/2024 Travel 10/16/2024 Telephone [facility] MEDICINE [address] [place], [place] [id number] Hoda Hay MD Appointment Request from Last 3 Months Immunizations Immunization Administration Dates Next Due DTaP, 5 pertussis [...] 20 12/23/2024 10:33 AM EDT Oxygen Saturation 97% 10/28/2024 9:22 AM EDT Inhaled Oxygen Concentration - - Weight 111 kg (244 lb) 12/23/2024 10:33 AM EDT Height 164 cm (5' 4.57 ) 10/28/2024 9:22 AM EDT Body Mass Index 41.15 10/28/2024 9:22 AM EDT Plan of Treatment Upcoming Encounters Date Type Department Care Team ([facility] st Contact Info) Description 02/04/2025 9:45 AM EDT Procedure Visit [facility] MED & PEDS [address] [place] [address] Hoda Hay MD [address] [place] [address] Health Maintenance Due Date Last Done Comments Chlamydia and Gonorrhea Screening 2001 Dental X-Ray: Full Mouth 2001 HIV Screening 2001 Disability Screening 2001 Alcohol/Substance Use Screening 2013 Meningococcal B Vaccine (1 of 2 - Standard) 2017 Hepatitis C Screening 2019 Dental Oral Exam 07/23/2020 01/22/2020, , 03/04/2018, Additional history exists Dental X-Ray: Bitewings 01/22/2021 01/22/20, 12/18/2014, 06/02/2013, Additional history exists Dental Prophylaxis 10/07/2021 04/07/2021, 0 11/01/2018, 03/04/2018, Additional history exists Pap Smear 2022 Depression Screening 11/21/2024 11/22/2023, 11/22/19 24 SDOH Screening 11/21/2024 11/22/2023 Influenza Vaccine (#1) 2024 , 02/03/2020, 06/06/2013 Tobacco Screening 10/28/2025 10/28/2024 Family Planning (PISQ) 12/23/2025 12/23/2024 Lipid Panel 11/22/2028 11/23/2023 DTaP/Tdap/Td Vaccines (7 [...] 013 COVID-19 Vaccine Completed 12/17/2023, 09/2020, 08/03/2020 HIB Vaccines Aged Out No longer eligi ble based on patient's age to complete this topic Pneumococcal Vaccine: Pediatrics (0 to 5 Years) and At-Risk Patients (6 to 49) Years Aged Out No longer eligible based on patient's age to complete this topic RSV under 20 months Aged Out No longe r eligible based on patient's age to complete this topic Rotavirus Vaccines Aged Out No longer eligible based on patient's age to complete this topic Procedures Procedure Name Priority Date/Time Associated Diagnosis Comments T-SPOT(R).TB Routine 11/18/2024 2:23 PM EDT Screening due LIPID PANEL, STANDARD Routine 11/23/2023 10:11 AM EDT Mass of right thigh Class 1 obesity PROPHYLAXIS - ADULT Routine 04/07/2021 1 2:00 AM EST BITEWINGS - 4 RADIOGRAPHIC IMAGES Routine 01/22/2020 12:00 AM EDT PERIODIC ORAL EVALUATION - ESTABLISHED PATIENT Routine 01/22/2020 12:00 AM EDT from Last 3 Months or Most Recently Relevant to Health Maintenance Results * T-SPOT??.TB (11/18/2024 2:23 PM EDT) [facility] T Spot TB Negative Negative [facility] Comment:A negative test resu lt does not exclude the possibilityof exposure to or infection with Mycobacteriumtuberculosis (M. tuberculosis). Patients with recentexposure to TB infected individuals exhibiting anegative T-SPOT.TB result should be considered forretesting within 6 weeks or if other relevant clinicalsymptoms indicate. Results from T-SPOT.TB testing mustbe used in conjunction with each individual'sepidemiological history, current medical status,and results of other diagnostic evaluations.The T-SPOT.TB test is qualitative and results arereported as positive, borderline, or negative, giventhat the test controls perform as expected. In linewith the Centers for Disease Control and Prevention's2010 recommendation to report quantitative measurementsalongside the qualitative result, the laboratoryprovides spot counts for informational purposes only.The T-SPOT.TB test should not be interpreted as aquantitative test. TS PANEL A 0 [facility] TS PANEL B 0 [facility] Negative Control Passed [facility] Positive Control Passed [facility] Comment:For additional infor maldonado, please refer tohttp://education.BuzzSpice/faq/HKB483(This link is being provided for informational/educational purposes only.)THIS TEST WAS PERFORMED AT:[employer] [id number] [place] [address]UPRIATWJAY HARRY MD,PHD 11/18/2024 2:23 PM EDT 11/18/2024 5:51 PM EDT us Hoda Hya MD LAB BLOOD ORDERABLES Final Re sult [facility] [address] [place] [address] [phone] * (ABNORMAL) Lipid Panel, Standard (11/23/2023 10:11 AM EDT) Triglycerides 74 <150 mg/dL [facility] Comment:Desirable Triglyceri de: less than 150 mg/dLBorderline High Triglyceride 150-199 mg/dLHigh Triglyceride: 200-499 mg/dLVery High Triglyceride: greater than or equal to 5OO mg/dL Cholesterol 179 <200 mg/dL [facility] Comment:Desirable Cholestero l: less than 200 mg/dLBorderline High Cholesterol: 200-239 mg/dLHigh Cholesterol: greater than 239 mg/dL LDL Cholesterol Calculated 113(H) <100 mg/dL [facility] Comment:Desirable LDL: less than 100 mg/dLNear Optimal/Above Optimal LDL: 110- 129 mg/dLBorderline High LDL: 130-159 mg/dLHigh LDL: 160-189 mg/dLVery High LDL: greater than or equal to 190 mg/dL HDL Cholesterol 52 >40 mg/dL [facility] Comment:Desirable HDL: great er than 40 mg/dL Note: This HDL assay may give artificially low results in patients with liver disease. Blood Venous blood specimen / Unknown 11/23/2023 10:11 AM EDT 11/23/2023 2:23 PM EDT us Hoda Hay MD LAB BLOOD ORDERABLES Final Re sult [facility] [address] [place] [address] [phone] from Last 3 Months or Most Recently Relevant to Health Maintenance Insurance [employer] P[place] [address] [employer] Care Teams Vice President Of Talent Acquisition Relationship Specialty Start Date End Date Hoda Hay MD [address] [place] [address] PCP - General Family Medicine 08/18/19
--- OUTSIDE RECORDS SUMMARY | 2024-12-24 15:15 | XMS_ITS | Encounter Summary ---
Author Organization [employer] Address [address] [facility] 7 [place] [address] Care Team Providers Care Camp Nurse Name Role Phone Hoda Hay MD Primary Care Provider [phone] Reason for Visit * Reason Onset Date Comments Nurse Triage 02/13/2024 Encounter Details Date Type Department Care Team ([facility] Contact Info) Description 02/13/2024 Telephone [facility] MEDICINE [address] [place] [address] Hoda Hay MD [address] [place] [address] Nurse Triage Social History Tobacco Use Types [...] Upcoming Encounters Date Type Department Care Team ([facility] st Contact Info) Description 02/04/2025 9:45 AM EDT Procedure Visit [facility] MED & PEDS [address] [place] [address] Hoda Hay MD [address] [place] [address] documented as of this encounter Visit Diagnoses Not on filedocumented in this encounter Additional Health Concerns Assessment Noted Time PHQ-9 Depression Total Score: 5 11/22/19 24 10:32 AM EDT documented as of this encounter Care Teams Camp Nurse Relationship Specialty Start Date End Date Hoda Hay MD [address] [place] [address] PCP - General Family Medicine 08/18/19 documented as of this encounter
== END 2024-12-24 12:14 | disposition home or self-care (01) ==
LOC: HO.HOS 11:47
PROVIDERS: Visit Provider Physician Assistant
DX: S80.02XA Contusion of left knee, initial encounter (principal); M94.262 Chondromalacia, left knee
CPT/HCPCS: 99203; G2211

== ENCOUNTER → 2024-12-24 11:48 | Outpatient (BNV) | payer OTHER, SELFPAY | PROVIDERS: Visit Provider Radiology Body Imaging | DX: M25.562 Pain in left knee (principal) | CPT/HCPCS: 73560 ==

== ENCOUNTER 2025-01-01 14:30 | Outpatient (REF) | payer OTHER, SELFPAY ==
--- NOTE | ~2025-01-01 | US_ITS ---
Examination: US Extremity Nonvas Limited Rt Technique: Grayscale and color Doppler imaging was performed in the right axillary region. INDICATION: Palpable lump in right arm/armpit. Prior: None FINDINGS: Palpable mass Right upper medial arm: There is a circumscribed lesion in the superficial subcutaneous soft tissues just deep to the dermis measuring 16 x 6 x 16 mm. No internal flow is demonstrated on color Doppler. There is no increased through transmission. There is a second adjacent lesion with similar characteristics measuring 2 x 2 x 3 mm. No flow is demonstrated within the lesion on color Doppler. US/US Extremity Nonvas Limited RT Impression: Palpable lumps correlate to lesions in the superficial subcutaneous soft tissues with indeterminate characteristics. While these could represent lipomas, ultrasound is not a definitive means to evaluate musculoskeletal soft tissue masses. If further characterization is indicated, MRI is the most definitive imaging modality for musculoskeletal soft tissue masses. Electronically signed by: Sekou Ruggiero MD 01/01/2025 03:13 PM EDT
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
--- OUTSIDE RECORDS SUMMARY | 2025-01-01 18:51 | XMS_ITS | Encounter Summary ---
Author Organization [employer] Address [address] [place] [address] 7 [place] [address] Care Team Providers Care Manager Of Community Relations Name Role Phone Hoda Hay MD Primary Care Provider [phone] Encounter Details Date Type Department Care Team [...] Description 02/04/2025 9:45 AM EDT Procedure Visit [facility] [address] [place] [address] Hoda Hay MD [address] [place] [address] documented as of this encounter Visit Diagnoses Not on filedocumented in this encounter Care Teams Manager Of Community Relations Relationship Specialty Start Date End Date Hoda Hay MD [address] [place] [address] PCP - General Family Medicine 08/18/19 documented as of this encounter
--- OUTSIDE RECORDS SUMMARY | 2025-01-01 18:51 | XMS_ITS | Encounter Summary ---
Author Organization [employer] Address 75 [facility] 7 [place] [address] Care Team Providers Care Powder Carrier Name Role Phone Hoda Hay MD Primary Care Provider [phone] Reason for Visit * Reason Onset Date Comments Nurse Triage 02/13/2024 Encounter Details Date Type Department Care Team ([facility] Contact Info) Description 02/13/2024 Telephone [facility] [address] [place] [address] Hoda Hay MD [address] [place] [address] Nurse Triage Social History Tobacco Use Types [...] Upcoming Encounters Date Type Department Care Team ([facility] st Contact Info) Description 02/04/2025 9:45 AM EDT Procedure Visit [facility] [address] [place] [address] Hoda Hay MD [address] [place] [address] documented as of this encounter Visit Diagnoses Not on filedocumented in this encounter Additional Health Concerns Assessment Noted Time PHQ-9 Depression Total Score: 5 11/22/19 24 10:32 AM EDT documented as of this encounter Care Teams Powder Carrier Relationship Specialty Start Date End Date Hoda Hay MD [address] [place] [address] PCP - General Family Medicine 08/18/19 documented as of this encounter
--- OUTSIDE RECORDS SUMMARY | 2025-01-01 18:51 | XMS_ITS | Clinical Summary ---
Author Organization [employer] Address [address] [place] [address] 7t [place] [address] Care Team Providers Care Process Trainer Name Role Phone Hoda Hay MD Primary Care Provider [phone] Allergies Active Allergy Reactions Criticality Noted Date [...] Encounters Date Type Department Care Team Description 01/01/[address] [facility] [address] [place] [address] Dakota Livingston MD 12/23/2024 10:30 AM EDT Office Visit [facility] [address] [place] [address] Hoda Hay MD Chronic upper back pain (Primary Dx); Obesity, Class III, BMI 40-49.9 (morbid obesity) 12/23/2024 Travel 11/28/2024 Telephone [facility] [address] [place] [address] Hoda Hay MD Referral 11/20/2024 Telephone [facility] [address] [place] [address] Hoda Hay MD No Show 11/18/2024 Telephone [facility] [address] [place] [address] Hoda Hay MD Lab Orders 10/29/2024 11:15 AM EDT Office Visit [facility] [address] [place] [address] Hoda Hay MD Patellofemoral disorder of left knee (Primary Dx); Chronic pain of left knee; Dietary counseling; Exercise counseling 10/29/2024 Travel 10/28/2024 9:15 AM EDT Office Visit [facility] [address] [place] [address] Dakota Livingtson MD Lump in armpit, right (Primary Dx); Allergic contact dermatitis due to other agents 10/28/2024 Travel 10/16/[address] [facility] [address] [place] [address] Hoda Hay MD Appointment Request from Last [...] Care Team (Late st Contact Info) Description 02/04/2025 9:45 AM EDT Procedure Visit [facility] [address] [place] [address] Hoda Hay MD [address] [place] [address] Health Maintenance Due Date Last Done Comments Chlamydia and Gonorrhea Screening 2001 Dental X-Ray: Full Mouth 2001 HIV Screening 2001 Disability Screening 2001 Alcohol/Substance Use Screening 2013 Meningococcal B Vaccine (1 of 2 - Standard) 2017 Hepatitis C Screening 2019 Dental Oral Exam 07/23/2020 01/22/2020, , 03/04/2018, Additional history exists Dental X-Ray: Bitewings 01/22/2021 01/22/20 20, 12/18/2014, 06/02/2013, Additional history exists Dental Prophylaxis [...] Procedure Name Priority Date/Time Associated Diagnosis Comments US EXTREMITY NON-VASCULAR RIGHT LIMITED Routine 01/01/2025 2:51 PM EDT T-SPOT(R).TB Routine 11/18/2024 2:23 PM EDT Screening [...] Recently Relevant to Health Maintenance Results * US EXTREMITY NON-VASCULAR RIGHT LIMITED (01/01/2025 2:51 PM EDT) Anatomical Region Laterality Modality Ultrasound 01/01/2025 2:51 PM EDT Narrative 01/01/2025 3:16 PM EDT [address] [address] Ultrasound Report Signed Patient: Delphine Petersen MR#: [id number] : 2000 Acct:[id number] Age/Sex: 24 / F ADM Date: 01/01/25 Loc: HO.US Attending Dr: Dakota Livingston MD Ordering Physician: Dakota Livingston MD Date of Service: 01/01/25 Procedure(s): US Extremity Nonvas Limited RT Accession Number(s): [id number] cc: Dakota Livingston MD Reason for Exam: RT LUMP IN ARMPIT/ARM Examination: US Extremity Nonvas Limited Rt Technique: Grayscale and color Doppler imaging was performed in the right axillary region. INDICATION: Palpable lump in right arm/armpit. Prior: None FINDINGS: Palpable mass Right upper medial arm: There is a circumscribed lesion in the superficial subcutaneous soft tissues just deep to the dermis measuring 16 x 6 x 16 mm. No internal flow is demonstrated on color Doppler. There is no increased through transmission. There is a second adjacent lesion with similar characteristics measuring 2 x 2 x 3 mm. No flow is demonstrated within the lesion on color Doppler. US/US Extremity Nonvas Limited RT Impression: Palpable lumps correlate to lesions in the superficial subcutaneous soft tissues with indeterminate characteristics. While these could represent lipomas, ultrasound is not a definitive means to evaluate musculoskeletal soft tissue masses. If further characterization is indicated, MRI is the most definitive imaging modality for musculoskeletal soft tissue masses. Electronically signed by: Sekou Ruggiero MD 01/01/2025 03:13 PM EDT Dictated By: Sekou Ruggiero MD Signed By: <Electronically signed by Sekou Ruggiero MD in OV> 01/01/25 1513 DD/ 1451 TD/TT: 01/01/25 1454 Custom Home Installer: Procedure Note Donotuseinterpreter, Image - 01/01/[address] [address] Ultrasound Report Signed Patient: Neo Petersen#: [id number] : 2000Acct:[id number] Age/Sex: 24 / FADM Date: 01/01/25 Loc: HO.US Attending Dr: Dakota Livingston MD Ordering Physician: Dakota Livingston MD Date of Service: 01/01/25 Procedure(s): US Extremity Nonvas Limited RT Accession Number(s): [id number] cc: Dakota Livingston MD Reason for Exam: RT LUMP IN ARMPIT/ARM Examination: US Extremity Nonvas Limited Rt Technique: Grayscale and color Doppler imaging was performed in the right axillary region. INDICATION: Palpable lump in right arm/armpit. Prior: None FINDINGS: Palpable mass Right upper medial arm: There is a circumscribed lesion in the superficial subcutaneous soft tissues just deep to the dermis measuring 16 x 6 x 16 mm. No internal flow is demonstrated on color Doppler. There is no increased through transmission. There is a second adjacent lesion with similar characteristics measuring 2 x 2 x 3 mm. No flow is demonstrated within the lesion on color Doppler. US/US Extremity Nonvas Limited RT Impression: Palpable lumps correlate to lesions in the superficial subcutaneous soft tissues with indeterminate characteristics. While these could represent lipomas, ultrasound is not a definitive means to evaluate musculoskeletal soft tissue masses. If further characterization is indicated, MRI is the most definitive imaging modality for musculoskeletal soft tissue masses. Electronically signed by: Sekou Ruggiero MD 01/01/2025 03:13 PM EDT Dictated By: Sekou Ruggiero MD Signed By: <Electronically signed by Sekou Ruggiero MD in OV> 01/01/25 1513 DD/ 1451 TD/TT: 01/01/25 1454 Custom Home Installer: us Dakota Livingston MD IMG US PROCEDURES Final Res ult * T-SPOT??.TB (11/18/2024 2:23 PM EDT) T Spot TB Negative Negative [facility] Comment:A negative test resu lt does [...] as aquantitative test. TS PANEL A 0 [facility] TS PANEL B 0 [facility] Negative Control Passed [facility] Positive Control Passed [facility] Comment:For additional infor mation, please refer tohttp://education.PaySimple/faq/KYT527(This link is being provided for informational/educational purposes only.)THIS TEST WAS PERFORMED AT:[employer] [id number] [place] [id number] HARRY MD,PHD 11/18/2024 2:23 PM EDT 11/18/2024 5:51 PM EDT us Hoda Hay MD LAB BLOOD ORDERABLES Final Re sult [facility] [address] [place] [address] [phone] * (ABNORMAL) Lipid Panel, Standard (11/23/2023 10:11 AM EDT) Triglycerides 74 <150 mg/dL [facility] Comment:Desirable Triglyceri de: less than 150 mg/dLBorderline High Triglyceride 150-199 mg/dLHigh Triglyceride: 200-499 mg/dLVery High Triglyceride: greater than or equal to 5OO mg/dL Cholesterol 179 <200 mg/dL [facility] Comment:Desirable Cholestero l: less than 200 mg/dLBorderline High Cholesterol: 200-239 mg/dLHigh Cholesterol: greater than 239 mg/dL LDL Cholesterol Calculated 113(H) <100 mg/dL [facility] Comment:Desirable LDL: less than 100 mg/dLNear Optimal/Above Optimal LDL: 110- 129 mg/dLBorderline High LDL: 130-159 mg/dLHigh LDL: 160-189 mg/dLVery High LDL: greater than or equal to 190 mg/dL HDL Cholesterol 52 >40 mg/dL [facility] Comment:Desirable HDL: great er than 40 mg/dL Note: This HDL assay may give artificially low results in patients with liver disease. Blood Venous blood specimen / Unknown 11/23/2023 10:11 AM EDT 11/23/2023 2:23 PM EDT us Hoda Hay MD LAB BLOOD ORDERABLES Final Re sult [facility] [address] [place] [address] [phone] from Last 3 Months or Most Recently Relevant to Health Maintenance Insurance [employer] PPO DENTAL - [employer] Care Teams Process Trainer Relationship Specialty Start Date End Date Hoda Hay MD [address] [place] [address] PCP - General Family Medicine 08/18/19
--- OUTSIDE RECORDS SUMMARY | 2025-01-01 18:52 | XMS_ITS | Encounter Summary ---
Author Organization [employer] Address [address] [place] [address] 7 [place] [address] Care Team Providers Care Knitter Mechanic Name Role Phone Hoda Hay MD Primary Care Provider [phone] Encounter Details Date Type Department Care Team ([facility] Contact Info) Description 01/01/2025 Orders Only [facility] [address] [place] [address] Dakota Livingston MD [address] [place] [address] Social History Tobacco Use Types Packs/Day Years [...] Description 02/04/2025 9:45 AM EDT Procedure Visit [facility] [address] [place] [address] Hoda Hay MD [address] [place] [address] documented as of this encounter Procedures Procedure Name Priority Date/Time Associated Diagnosis Comments US EXTREMITY NON-VASCULAR RIGHT LIMITED Routine 01/01/2025 2:51 PM EDT documented in this encounter Results * US EXTREMITY NON-VASCULAR RIGHT LIMITED (01/01/2025 2:51 PM EDT) Anatomical Region Laterality Modality Ultrasound 01/01/2025 2:51 PM EDT Narrative 01/01/2025 3:16 PM EDT [address] [address] Ultrasound Report Signed Patient: Delphine Petersen MR#: [id number] : 2000 Acct:[id number] Age/Sex: 24 / F ADM Date: 01/01/25 Loc: HO.US Attending Dr: Dakota Livingston MD Ordering Physician: Dakota Livingston MD Date of Service: 01/01/25 Procedure(s): US Extremity Nonvas Limited RT Accession Number(s): [id number] cc: Dakota Livingston MD Reason for Exam: [...] Sekou Ruggiero MD 01/01/2025 03:13 PM EDT RP Dictated By: Sekou Ruggiero MD Signed By: <Electronically signed by Sekou Ruggiero MD in OV> 01/01/25 1513 DD/ 1451 TD/TT: 01/01/25 1454 Test Administrator: Procedure Note Donotuseinterpreter, Image - 01/01/[address] [address] Ultrasound Report Signed Patient: Delphine PetersenMR#: [id number] : 2000Acct:[id number] Age/Sex: 24 FADM Date: 01/01/25 Loc: HO.US Attending Dr: Dakota Livingston MD Ordering Physician: Dakota Livingston MD Date of Service: 01/01/25 Procedure(s): US Extremity Nonvas Limited RT Accession Number(s): [id number] cc: Dakota Livingston MD Reason for Exam: [...] Sekou Ruggiero MD 01/01/2025 03:13 PM EDT RP Dictated By: Skeou Ruggiero MD Signed By: <Electronically signed by Sekou Ruggiero MD in OV> 01/01/25 1513 DD/ 1451 TD/TT: 01/01/25 1454 Test Administrator: us Dakota Livingston MD IMG US PROCEDURES Final Res ult documented in this encounter Visit Diagnoses Not on filedocumented in this encounter Additional Health Concerns Assessment Noted Time PHQ-9 Depression Total Score: 5 11/22/19 24 10:32 AM EDT documented as of this encounter Care Teams Knitter Mechanic Relationship Specialty Start Date End Date Hoda Hay MD [address] [place] [address] PCP - General Family Medicine 08/18/19 documented as of this encounter
== END 2025-01-01 14:31 | disposition home or self-care (01) ==
LOC: HO.US 14:30
PROVIDERS: PCP Internal Medicine; Visit Provider Internal Medicine
DX: M17.12 Unilateral primary osteoarthritis, left knee (principal)
CPT/HCPCS: 76882

== ENCOUNTER → 2025-01-01 14:51 | Outpatient (BNV) | payer OTHER, SELFPAY | PROVIDERS: PCP Internal Medicine; Visit Provider Radiology Diagnostic Radiology | DX: R22.31 Localized swelling, mass and lump, right upper limb (principal) | CPT/HCPCS: 76882 ==

== ENCOUNTER 2025-01-29 07:45 | Outpatient (REF) | payer OTHER, SELFPAY ==
--- NOTE | ~2025-01-29 | MR_ITS ---
CLINICAL HISTORY: M17.12 - Unilateral primary osteoarthritis, left knee Exam: Nonenhanced MRI of the left knee. Comparison: Radiographs dated 12/24/2024. Findings: Menisci: Meniscal signal intensities appear maintained, with no evidence of meniscal tears. Ligaments: Anterior and posterior cruciate ligaments appear intact. Medial and lateral collateral ligaments appear intact. Osseous structures: Bone marrow signal intensities appear maintained with no bone marrow edema, focal osseous lesions or fracture lines. Cartilage: Cartilage thickness appears maintained. Joint space and soft tissues: Trace joint effusion. No popliteal cyst. Impression: 1. Trace joint effusion. Otherwise, no evidence of internal derangement. This document has been electronically signed by: Pardeep Coppola MD on 01/30/2025 13:17:51
--- OUTSIDE RECORDS SUMMARY | 2025-01-29 08:08 | XMS_ITS | Encounter Summary ---
Author Organization [employer] Address [address] [facility] 7 [place] [address] Care Team Providers Care Java Programming Professor Name Role Phone Hoda Hay MD Primary Care Provider [phone] Reason for Visit * Reason Onset Date Comments Nurse Triage 02/13/2024 Encounter Details Date Type Department Care Team ([facility] Contact Info) Description 02/13/2024 Telephone [facility] MEDICINE [address] [place] [address] Hoda Hay MD [address] [place] [address] Nurse Triage Social History Tobacco Use Types [...] Upcoming Encounters Date Type Department Care Team ([facility] st Contact Info) Description 02/04/2025 9:45 AM EDT Procedure Visit [facility] [address] [place] [address] Hoda Hay MD [address] [place] [address] documented as of this encounter Visit Diagnoses Not on filedocumented in this encounter Additional Health Concerns Assessment Noted Time PHQ-9 Depression Total Score: 5 11/22/19 24 10:32 AM EDT documented as of this encounter Care Teams Java Programming Professor Relationship Specialty Start Date End Date Hoda Hay MD [address] [place] [address] PCP - General Family Medicine 08/18/19 documented as of this encounter
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
--- OUTSIDE RECORDS SUMMARY | 2025-01-29 08:08 | XMS_ITS | Encounter Summary ---
Author Organization [employer] Address [address] [place] [address] 7 [place] [address] Care Team Providers Care Congregational Care Pastor Name Role Phone Hoda Hay MD Primary Care Provider [phone] Reason for Referral * Consultation (Routine) - Authorized Specialty Diagnoses / Procedures Referred By Jhoana hernandez Referred To Contact General Surgery Diagnoses Lump in armpit, right Dakota Livingston MD [address] [place] [address] Phone: tel: fax: [facility] [address] [place] [address] 3rd Floor [place], [place] Phone: tel: fax: Referral ID Status Reason Start Date Expiration Date Visits Requested Visits Authorized [id number] Authorized Specialty Services Required 01/05/2025 01/05/2026 1 1 Encounter Details Date Type Department Care Team (Late st Contact Info) Description 01/05/2025 Orders Only [facility] MED & PEDS [address] [place], [place] [phone] Dakota Livingston MD [address] [place], [place] [phone] Lump in armpit, right (Primary Dx) Social History Tobacco Use Types [...] Upcoming Encounters Date Type Department Care Team ([facility] st Contact Info) Description 02/04/2025 9:45 AM EDT Procedure Visit [facility] MED & PEDS [address] [place] [address] Hoda Hay MD [address] [place] [address] Scheduled Referrals Name Type Priority Associated Diagnoses Orde r Schedule Referral to General Surgery Outpatient Referral Routine Lump in [facility], right Expected: 01/05/2025 (Approximate), Expires: 01/05/2026 documented as of this encounter Visit Diagnoses Diagnosis Lump in armpit, right- Primary documented in this encounter Additional Health Concerns Assessment Noted Time PHQ-9 Depression Total Score: 5 11/22/19 24 10:32 AM EDT documented as of this encounter Care Teams Congregational Care Pastor Relationship Specialty Start Date End Date Hoda Hay MD [address] [place] [address] PCP - General Family Medicine 08/18/19 documented as of this encounter
--- OUTSIDE RECORDS SUMMARY | 2025-01-29 08:08 | XMS_ITS | Clinical Summary ---
Author Organization [employer] Address [address] [place] [address] 7t [place] [address] Care Team Providers Care Workforce Analyst Name Role Phone Hoda Hay MD Primary Care Provider [phone] Allergies Active Allergy Reactions Criticality Noted Date Comments Diclofenac Rash Low 10/24/2011 Medications Semaglutide-Carlos ght Management (Wegovy) 0.25 MG/0.5ML solution auto-injectorIn dications:Obesi ty, Class III, BMI 40-49.9 (morbid obesity) ([facility]) Inject 0.25 mg under the skin 1 [...] topically bid prn pain 30 g 3 5 Active Active Problems Problem Noted Date Diagnosed [...] Encounters Date Type Department Care Team Description 01/07/2025 Results Follow-Up [facility] [address] [place] [address] Guillermina Oh, RN US EXTREMITY NON-VASCULAR RIGHT LIMITED 01/07/2025 Telephone [facility] MEDICINE [address] [place] [address] Hoda Hay MD Call back 01/05/2025 Orders Only [facility] MED & PEDS [address] [place] [address] Dakota Livingston MD Lump in armpit, right (Primary Dx) 01/01/2025 Orders Only [facility] MED [facility] PEDS [address] [place] [address] Dakota Livingston MD 12/23/2024 10:30 AM EDT Office Visit [facility] [address] [place] [address] Hoda Hay MD Chronic upper back pain (Primary Dx); Obesity, Class III, BMI 40-49.9 (morbid obesity) 12/23/2024 Travel 11/28/2024 Telephone [facility] [address] [place] [address] Hoda Hay MD Referral 11/20/2024 Telephone [facility] [address] [place] [address] Hoda Hay MD No Show 11/18/2024 Telephone [facility] [address] [place] [address] Hoda Hay MD Lab Orders 10/29/2024 11:15 AM EDT Office Visit [facility] [address] [place] [address] Hoda Hay MD Patellofemoral disorder of left knee (Primary Dx); Chronic pain of left knee; Dietary counseling; Exercise counseling 10/29/2024 Travel from Last 3 Months Immunizations Immunization Administration [...] Description 02/04/2025 9:45 AM EDT Procedure Visit [facility] [address] [place], [place] [phone] Hoda Hay MD [address] [place], [place] [phone] Health Maintenance Due Date Last Done Comments [...] 11/21/2024 11/22/2023, 11/22/19 SDOH Screening 11/21/2024 11/22/2023 Influenza Vaccine (#1) [...] PM EDT Narrative 01/01/2025 3:16 PM EDT [place] [address] Ultrasound Report Signed Patient: Delphine Petersen MR#: [id number] : 2000 Acct:[id number] Age/Sex: 24 / F ADM Date: 01/01/25 Loc: HO.US Attending Dr: Dakota Livingston MD Ordering Physician: Dakota Livingston MD Date of Service: 01/01/25 Procedure(s): US Extremity Nonvas Limited RT Accession Number(s): [id number] cc: Dakota Livingston MD Reason for Exam: [...] OV> 01/01/25 1513 DD/ 1451 TD/TT: 01/01/25 145 Patient Escort: Procedure Note Donotuseinterpreter, Image - 01/01/[address] [address] Ultrasound Report Signed Patient: Delphine PetersenMR#: [id number] : 2000Acct:[id number] Age/Sex: 24 / FADM Date: 01/01/25 Loc: HO.US Attending Dr: Dakota Livingston MD Ordering Physician: Dakota Livingston MD Date of Service: 01/01/25 Procedure(s): US Extremity Nonvas Limited RT Accession Number(s): [id number] cc: Dakota Livingston MD Reason for Exam: [...] in OV> 01/01/25 1513 DD/ 1451 TD/TT: 01/01/251453 Patient Escort: us Dakota Livingston MD IMG US PROCEDURES Final Res ult * T-SPOT??.TB (11/18/2024 2:23 PM EDT) T Spot TB Negative Negative [facility] Comment:A negative test resu lt [...] as aquantitative test. TS PANEL A 0 [facility] TS PANEL B 0 [facility] Negative Control Passed [facility] Positive Control Passed [facility] Comment:For additional infor maldonado, please refer tohttp://[email or web address].Bettyvision/faq/[email or web address](This link is being provided for informational/educational purposes only.)THIS TEST WAS PERFORMED AT:[facility] [place] [address]CABZKBYJAY HARRY MD,PHD 11/18/2024 2:23 PM EDT 11/18/2024 5:51 PM EDT us Hoda Hay MD LAB BLOOD ORDERABLES Final Re sult [facility] [address] [place] [address] [phone] * (ABNORMAL) Lipid Panel, Standard (11/23/2023 10:11 AM EDT) Triglycerides 74 <150 mg/dL [facility] Comment:Desirable Triglyceri de: less than 150 mg/dLBorderline High Triglyceride 150-199 mg/dLHigh Triglyceride: 200-499 mg/dLVery High Triglyceride: greater than or equal to 5OO mg/dL Cholesterol 179 <200 mg/dL [facility] Comment:Desirable Cholestero l: less than 200 mg/dLBorderline High Cholesterol: 200-239 mg/dLHigh Cholesterol: greater than 239 mg/dL LDL Cholesterol Calculated 113(H) <100 mg/dL [facility] Comment:Desirable LDL: less than 100 mg/dLNear Optimal/Above Optimal LDL: 110- 129 mg/dLBorderline High LDL: 130-159 mg/dLHigh LDL: 160-189 mg/dLVery High LDL: greater than or equal to 190 mg/dL HDL Cholesterol 52 >40 mg/dL [facility] Comment:Desirable HDL: great er than 40 mg/dL Note: This HDL assay may give artificially low results in patients with liver disease. Blood Venous blood specimen / Unknown 11/23/2023 10:11 AM EDT 11/23/2023 2:23 PM EDT us Hoda Hay MD LAB BLOOD ORDERABLES Final Re sult [facility] [address] [place] [address] [phone] from Last 3 Months or Most Recently Relevant to Health Maintenance Insurance [employer] - [employer] Care Teams Workforce Analyst Relationship Specialty Start Date End Date Hoda Hay MD [address] [place] [address] PCP - General Family Medicine 08/18/19
--- OUTSIDE RECORDS SUMMARY | 2025-01-29 08:08 | XMS_ITS | Encounter Summary ---
Author Organization [employer] Address [address] [place] [address] 7 [place] [address] Care Team Providers Care Chart Picker Name Role Phone Hoda Hay MD Primary Care Provider [phone] Encounter Details Date Type Department Care Team (Latest Contact Info) Description 04/07/2021 Abstract [facility] CONVERSIONS Dental, Provider, DDS Social History Tobacco [...] Description 02/04/2025 9:45 AM EDT Procedure Visit [facility] MED & PEDS [address] [place] [address] Hoda Hay MD [address] [place] [address] documented as of this encounter Visit Diagnoses Not on filedocumented in this encounter Care Teams Chart Picker Relationship Specialty Start Date End Date Hoda Hay MD [address] [place] [address] PCP - General Family Medicine 08/18/19 documented as of this encounter
--- OUTSIDE RECORDS SUMMARY | 2025-01-29 08:08 | XMS_ITS | Clinical Summary ---
Author Organization [facility] Address [address] [place] [address] Care Team Providers Care Artificial Pearl Maker Name Role Phone Unavailable Primary Care Provider [...]
== END 2025-01-29 07:46 | disposition home or self-care (01) ==
LOC: HO.MRI 07:45
PROVIDERS: PCP Internal Medicine; Visit Provider Physician Assistant
DX: M17.12 Unilateral primary osteoarthritis, left knee (principal)
CPT/HCPCS: 73721

== ENCOUNTER → 2025-01-29 07:45 | Outpatient (BNV) | payer OTHER, SELFPAY | PROVIDERS: PCP Internal Medicine; Visit Provider Radiology Diagnostic Radiology | DX: M17.12 Unilateral primary osteoarthritis, left knee (principal) | CPT/HCPCS: 73721 ==

== ENCOUNTER 2025-02-04 12:24 | Outpatient (REF) | payer OTHER, SELFPAY ==
--- OUTSIDE RECORDS SUMMARY | 2025-02-04 09:45 | XMS_ITS | Encounter Summary ---
Author Organization [employer] Address [address] [place] [address] Care Team Providers Care Purchasing Buyer Name Role Phone Hoda Hay MD Primary Care Provider [phone] Reason for Referral * Imaging (Routine) - Authorized Specialty Diagnoses / Procedures Referred By Contac t Referred To Contact Radiology Diagnoses Irregular periods/menstrual cycles Procedures US Pelvis Transvaginal Hoda Hay MD [address] [place] [address] Phone: tel: fax: [address] Phone: tel: fax: Referral ID Status Reason Start Date Expiration Date V isits Requested Visits Authorized [id number] Authorized 02/04/2025 02/04/2026 1 1 * Imaging (Routine) - Authorized Specialty Diagnoses / Procedures Referred By Contac t Referred To Contact Radiology Diagnoses Irregular periods/menstrual cycles Procedures Us Pelvis complete Hoda Hay MD [address] [place] [address] Phone: tel: fax: [address] Phone: tel: fax: Referral ID Status Reason Start Date Expiration Date V isits Requested Visits Authorized [id number] Authorized 02/04/2025 02/04/2026 1 1 Encounter Details Date Type Department Care Team (Latest Contact Info) Description 02/04/2025 9:45 AM EDT Procedure Visit [facility] CHC MED & PEDS [address] [place] [address] Hoda Hay MD [address] [place] [address] Class 1 obesity (Primary Dx); Obesity, Class III, BMI 40-49.9 (morbid obesity) (HCC); Irregular periods/menstrual cycles; Encounter for gynecological examination with Papanicolaou smear of cervix Social History Tobacco Use Types Packs/Day Years [...] Sign Reading Time Taken Comments Blood Pressure 130/80 02/04/2025 9:58 AM EDT Pulse 84 02/04/2025 9:58 AM EDT Temperature 36.8 C (98.3 F) 02/04/2025 9:58 AM EDT Respiratory Rate 20 02/04/2025 9:58 AM EDT Oxygen Saturation - - Inhaled Oxygen Concentration - - Weight 111 kg (244 lb) 02/04/2025 9:58 AM EDT Height - - Body Mass Index 41.15 10/28/2024 9:22 AM EDT documented in this encounter Progress Notes * Hoda Hay MD - 02/04/2025 9:45 AM EDT Russ Petersen is a 24 y.o. No obstetric history on file. woman here for pap. LMP:12-30-24 Menses frequency:irregular periods, every 35 days or so Menses concerns:irregularity,no menorrhagia Desires within the next year:yes [facility] control:none Breast concerns:no concerns Negative for: Tenderness Menopausal symptoms negative for: hot flashes, night sweats, urinary incontinence and vaginal dryness. Review of Systems Review of Systems Constitutional: Negative for activity change, chills, fever and unexpected weight change. Respiratory: Negative for cough, shortness of breath and wheezing. Cardiovascular: Negative for chest pain, palpitations and leg swelling. Gastrointestinal: Negative for abdominal pain and blood in stool. Endocrine: Negative for polydipsia and polyuria. Genitourinary: Positive for menstrual problem and pelvic pain. Negative for decreased urine volume,difficulty urinating, dyspareunia, dysuria, enuresis, hematuria, vaginal discharge and vaginal pain. Musculoskeletal: Negative for arthralgias and gait problem. Skin: Negative for color change and rash. Neurological: Negative for dizziness and headaches. Hematological: Negative for adenopathy. Psychiatric/Behavioral: Negative for dysphoric mood, hallucinations, sleep disturbance and suicidalideas. The patient is not nervous/anxious. No results found for: PAPPA No results found for: SILKE Previous paps:never Mammogram: N/a Objective BP 130/80 (BP Location: Left arm, Patient Position: Sitting, BP Cuff Size: Adult) Pulse84 Temp 98.3 ??F (36.8 ??C) (Oral) Resp 20 Wt 244 lb (111 kg) LMP 12/30/2024 (Exact Date) BMI 41.15 kg/m?? Physical Exam Vitals reviewed. Exam conducted with a fuel retrofitting technician present. Constitutional: General: She is not in acute [...] respiratory distress. Breath sounds: Normal breath sounds. Chest: Chest wall: No mass, deformity or tenderness. Breasts: Arturo Score is 5. Right: Normal. No bleeding, inverted nipple, mass, nipple discharge, skin change or tenderness. Left: Normal. No bleeding, inverted nipple, mass, nipple discharge, skin change or tenderness. Abdominal: Palpations: Abdomen is soft. Hernia: There is no hernia in the left inguinal area or right inguinal area. Genitourinary: Exam position: Lithotomy position. Arturo stage (genital): 5. Labia: Right: No rash, lesion or injury. Left: No rash, lesion or injury. Vagina: Normal. No signs of injury and foreign body. Cervix: Cervical bleeding present. No cervical motion tenderness, friability, lesion or erythema. Uterus: Normal. Not tender. Adnexa: Right: Tenderness present. No mass or fullness. Left: No mass, tenderness or fullness. Musculoskeletal: General: Normal range of motion. Cervical back: Normal range of motion. Lymphadenopathy: Upper Body: Right upper body: No axillary adenopathy. Left upper body: No axillary adenopathy. Lower Body: No right inguinal adenopathy. No left inguinal adenopathy. Skin: General: Skin is warm. Capillary Refill: Capillary refill takes less than 2 seconds. Neurological: General: No focal deficit present. Mental Status: She is alert and oriented to person, place, and time. Psychiatric: Mood and Affect: Mood normal. Behavior: Behavior normal. Thought Content: Thought content normal. Judgment: Judgment normal. Problem List Items Addressed This Visit None Pap with HPV testing done STI testing offered and performed today, call with results once available. Preventative care and harm reduction discussed.Pelvic US ordered due to irregular and heavy periodsassociated with hirsutism,etc.R/O PCOS. documented in this encounter Plan of Treatment Scheduled Orders Name Type Priority Associated Diagnoses Orde r Schedule Pap Smear Pathology and Cytology Routine Encounter for gynecological examination with Papanicolaou smear of cervix Ordered: 02/04/2025 Us Pelvis complete Imaging Routine Irregular periods/menstrual cycles Expected: 02/04/2025, Expires: 02/04/2026 US Pelvis Transvaginal Imaging Routine Irregular periods/menstrual cycles Expected: 02/04/2025, Expires: 02/04/2026 Chlamydia/N. Gonorrhoeae RNA, TMA, Vaginal Microbiology Routine Encounter for gynecological examination with Papanicolaou smear of cervix Ordered: 02/04/2025 documented as of this encounter Visit Diagnoses Diagnosis Class 1 obesity- Primary Obesity, Class III, BMI 40-49.9 (morbid obesity) (HCC) Irregular periods/menstrual cycles Encounter for gynecological examination with Papanicolaou smear of cervix documented in this encounter Additional Health Concerns Assessment Noted Time PHQ-9 Depression Total Score: 5 11/22/19 24 10:32 AM EDT documented as of this encounter Care Teams Purchasing Buyer Relationship Specialty Start Date End Date Hoda Hay MD [address] [place] [address] PCP - General Family Medicine 08/18/19 documented as of this encounter
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
--- OUTSIDE RECORDS SUMMARY | 2025-02-04 15:46 | XMS_ITS | Clinical Summary ---
Author Organization [facility] Address [address] [place] [address] Care Team Providers Care Director Bioinformatics Name Role Phone Unavailable Primary Care Provider [...]
--- OUTSIDE RECORDS SUMMARY | 2025-02-04 15:46 | XMS_ITS | Encounter Summary ---
Author Organization [employer] Address [address] [place] [address] 7 [place] [address] Care Team Providers Care Comparative Sociology Professor Name Role Phone Hoda Hay MD Primary Care Provider [phone] Reason for Referral * Consultation (Routine) - Authorized Specialty Diagnoses / Procedures Referred By Jhoana hernandez Referred To Contact General Surgery Diagnoses Lump in armpit, right Dakota Livingston MD [address] [place] [address] Phone: tel: fax: [facility] Surgeons [address] [place] [address] 3rd Floor [place], [place] Phone: tel: fax: Referral ID Status Reason Start Date Expiration Date Visits Requested Visits Authorized [id number] Authorized Specialty Services Required 01/05/2025 01/05/2026 1 1 Encounter Details Date Type Department Care Team (Late st Contact Info) Description 01/05/2025 Orders Only [facility]EDS [address] [place], [place] [phone] Dakota Livingston MD [address] [place], [place] [phone] Lump in armpit, right (Primary Dx) Social [...] as of this encounter Plan of Treatment Scheduled Referrals Name Type Priority Associated Diagnoses Orde r Schedule Referral to General Surgery Outpatient Referral Routine Lump in armt, right Expected: 01/05/2025 (Approximate), Expires: 01/05/2026 documented as of this encounter Visit Diagnoses Diagnosis Lump in armpit, right- Primary documented in this encounter Additional Health Concerns Assessment Noted Time PHQ-9 Depression Total Score: 5 11/22/19 24 10:32 AM EDT documented as of this encounter Care Teams Comparative Sociology Professor Relationship Specialty Start Date End Date Hoda Hay MD [address] [place] [address] PCP - General Family Medicine 08/18/19 documented as of this encounter
--- OUTSIDE RECORDS SUMMARY | 2025-02-04 15:46 | XMS_ITS | Clinical Summary ---
Author Organization [employer] Address [address] [place] [address] 7t [place] [address] Care Team Providers Care Director [employer] Name Role Phone Hoda Hay MD Primary Care Provider [phone] Allergies Active Allergy Reactions Criticality Noted Date Comments Diclofenac Rash Low 10/24/2011 Medications methocarbamol (Robaxin) 750 MG tablet TAKE ONE [...] prn pain 30 g 3 5 Active Semaglutide-Carlos ght Management (Wegovy) 0.25 MG/0.5ML solution auto-injectorIn dications:Obesi ty, Class III, BMI 40-49.9 (morbid obesity) ([facility]) Inject 0.25 mg under the skin 1 (one) time per week. 0.5 mL 4 02/05/20 25 Discontinu ed(Cost of medication ) Active Problems Problem Noted Date Diagnosed Date [...] Encounters Date Type Department Care Team Description 02/04/2025 9:45 AM EDT Procedure Visit [facility] MED & PEDS [address] [place] [address] Hoda Hay MD Class 1 obesity (Primary Dx); Obesity, Class III, BMI 40-49.9 (morbid obesity) (HCC); Irregular periods/menstrual cycles; Encounter for gynecological examination with Papanicolaou smear of cervix 02/04/2025 Travel 01/29/2025 Orders Only [facility] External Provider, [facility] 01/07/2025 Results Follow-Up [facility] [address] [place] [address] Guillermina Oh, RN US EXTREMITY NON-VASCULAR RIGHT LIMITED 01/07/2025 Telephone [facility] MEDICINE [address] [place], [place] [phone] Hoda Hay MD Call back 01/05/2025 Orders Only [facility] [address] [place] [address] Dakota Livingston MD Lump in armpit, right (Primary Dx) 01/01/2025 Orders Only [facility] [address] [place] [address] Dakota Livingston MD 12/23/2024 10:30 AM EDT Office Visit [facility] [address] [place] [address] Hoda Hay MD Chronic upper back pain (Primary Dx); Obesity, Class III, BMI 40-49.9 (morbid obesity) 12/23/2024 Travel 11/28/2024 Telephone [facility] [address] [place] [address] Hoda Hay MD Referral 11/20/2024 Telephone [facility] [address] [place] [address] Hoda Hay MD No Show 11/18/2024 Telephone [facility] [address] [place] [address] Hoda Hay MD Lab Orders from Last 3 Months Immunizations Immunization Administration [...] 20 02/04/2025 9:58 AM EDT Oxygen Saturation 97% 10/28/2024 9:22 AM EDT Inhaled Oxygen Concentration - - Weight 111 kg (244 lb) 02/04/2025 9:58 AM EDT Height 164 cm (5' 4.57 ) 10/28/2024 9:22 AM EDT Body Mass Index 41.15 10/28/2024 9:22 AM EDT Plan of Treatment Health Maintenance Due Date [...] Influenza Vaccine (#1) 2024 , 02/03/2020, 06/06/2013 Family Planning (PISQ) 12/23/2025 12/23/2024 Tobacco Screening 02/04/2026 02/04/2025 Lipid Panel 11/22/2028 11/23/2023 DTaP/Tdap/Td Vaccines (7 [...] Procedure Name Priority Date/Time Associated Diagnosis Comments MR KNEE WO CONTRAST LEFT Routine 01/30/2025 1:17 PM EDT US EXTREMITY NON-VASCULAR RIGHT LIMITED Routine 01/01/2025 [...] Recently Relevant to Health Maintenance Results * MR Knee w/o Contrast Left (01/30/2025 1:17 PM EDT) Anatomical Region Laterality Modality Magnetic Resonan ce 01/30/2025 1:17 PM EDT Narrative 01/30/2025 1:19 PM EDT [address] [address] Magnetic Resonance Report Signed Patient: Delphine Petersen MR#: [id number] : 2000 Acct:[id number] Age/Sex: 24 / F ADM Date: 01/29/25 Loc: HO.MRI Attending Dr: Zo Slater PA-C Ordering Physician: Zo Slater PA-C Date of Service: 01/29/25 Procedure(s): MR knee LT wo con Accession Number(s): [id number] cc: Dakota Livingston MD; Zo Slater PA-C Reason for Exam: M17.12 - Unilateral primary osteoarthritis, left knee CLINICAL HISTORY: M17.12 - Unilateral primary osteoarthritis, left knee Exam: Nonenhanced MRI of the left knee. Comparison: Radiographs dated 12/24/2024. Findings: Menisci: Meniscal signal intensities appear maintained, with no evidence of meniscal tears. Ligaments: Anterior and posterior cruciate ligaments appear intact. Medial and lateral collateral ligaments appear intact. Osseous structures: Bone marrow signal intensities appear maintained with no bone marrow edema, focal osseous lesions or fracture lines. Cartilage: Cartilage thickness appears maintained. Joint space and soft tissues: Trace joint effusion. No popliteal cyst. Impression: 1. Trace joint effusion. Otherwise, no evidence of internal derangement. This document has been electronically signed by: Pardeep Coppola MD on 01/30/2025 13:17:51 Dictated By: Pardeep Coppola MD Signed By: <Electronically signed by Pardeep Coppola MD in OV> 01/30/25 1318 DD/ 1317 TD/TT: 01/30/25 1317 Estimate Clerk: Procedure Note Donotuseinterpreter, Image - 01/30/[address] [address] Magnetic Resonance Report Signed Patient: Delphine PetersenMR#: [id number] : 2000Acct:[id number] Age/Sex: 24 FADM Date: 01/29/25 Loc: HO.MRI Attending Dr: Zo Slater PA-C Ordering Physician: Zo Slater PA-C Date of Service: 01/29/25 Procedure(s): MR knee LT wo con Accession Number(s): [id number] cc: Dakota Livingston MD; Zo Slater PA-C Reason for Exam: M17.12 - Unilateral primary osteoarthritis, left knee CLINICAL HISTORY: M17.12 - Unilateral primary osteoarthritis, left knee Exam: Nonenhanced MRI of the left knee. Comparison: Radiographs dated 12/24/2024. Findings: Menisci: Meniscal signal intensities appear maintained, with no evidence of meniscal tears. Ligaments: Anterior and posterior cruciate ligaments appear intact. Medial and lateral collateral ligaments appear intact. Osseous structures: Bone marrow signal intensities appear maintained with no bone marrow edema, focal osseous lesions or fracture lines. Cartilage: Cartilage thickness appears maintained. Joint space and soft tissues: Trace joint effusion. No popliteal cyst. Impression: 1. Trace joint effusion. Otherwise, no evidence of internal derangement. This document has been electronically signed by: Pardeep Coppola MD on 01/30/2025 13:17:51 Dictated By: Pardeep Coppola MD Signed By: <Electronically signed by Pardeep Coppola MD in OV> 01/30/25 1318 DD/ 1317 TD/TT: 01/30/25 1317 Estimate Clerk: us [facility] External Provider IMG MRI PROCEDURES Final Result * US EXTREMITY NON-VASCULAR RIGHT LIMITED (01/01/2025 2:51 PM EDT) Anatomical Region Laterality Modality Ultrasound 01/01/2025 2:51 PM EDT Narrative 01/01/2025 3:16 PM EDT [facility] [address] [place] [address] Ultrasound Report Signed Patient: Delphine Petersen MR#: [id number] : 2000 Acct:[id number] Age/Sex: 24 / F ADM Date: 01/01/25 Loc: HO.US Attending Dr: Dakota Livingston MD Ordering Physician: Dakota Livingston MD Date of Service: 01/01/25 Procedure(s): US Extremity Nonvas Limited RT Accession Number(s): [id number] cc: Dakota Livingston MD Reason for Exam: [...] 01/01/25 1513 DD/ 1451 TD/TT: 01/01/25 1454 Estimate Clerk: Procedure Note Donotuseinterpreter, Image - 01/01/[address] [address] Ultrasound Report Signed Patient: Neo Petersen#: [id number] : 2000Acct:[id number] Age/Sex: 24 / FADM Date: 01/01/25 Loc: HO.US Attending Dr: Dakota Livingston MD Ordering Physician: Dakota Livingston MD Date of Service: 01/01/25 Procedure(s): US Extremity Nonvas Limited RT Accession Number(s): [id number] cc: Dakota Livingston MD Reason for Exam: [...] 01/01/25 1513 DD/ 1451 TD/TT: 01/01/25 1454 Estimate Clerk: us Dakota Livingston MD IMG US PROCEDURES Final Res ult * T-SPOT??.TB (11/18/2024 2:23 PM EDT) [facility] T Spot TB Negative Negative [facility] Comment:A negative test resu lt [...] as aquantitative test. TS PANEL A 0 [facility] TS PANEL B 0 [facility] Negative Control Passed [facility] Positive Control Passed [facility] Comment:For additional infor mation, please refer tohttp://education.[employer]/faq/JHU146(This link is being provided for informational/educational purposes only.)THIS TEST WAS PERFORMED AT:[employer] [id number] [place] [address]VUTUZYIJAY HARRY MD,PHD 11/18/2024 2:23 PM EDT 11/18/2024 5:51 PM EDT us Hoda Hay MD LAB BLOOD ORDERABLES Final Re sult [facility] [address] [place] [address] [phone] * (ABNORMAL) Lipid Panel, Standard (11/23/2023 10:11 AM EDT) Triglycerides 74 <150 mg/dL [facility] Comment:Desirable Triglyceri de: less than 150 mg/dLBorderline High Triglyceride 150-199 mg/dLHigh Triglyceride: 200-499 mg/dLVery High Triglyceride: greater than or equal to 5OO mg/dL Cholesterol 179 <200 mg/dL [facility] Comment:Desirable Cholestero l: less than 200 mg/dLBorderline High Cholesterol: 200-239 mg/dLHigh Cholesterol: greater than 239 mg/dL LDL Cholesterol Calculated 113(H) <100 mg/dL [facility] Comment:Desirable LDL: less than 100 mg/dLNear Optimal/Above Optimal LDL: 110- 129 mg/dLBorderline High LDL: 130-159 mg/dLHigh LDL: 160-189 mg/dLVery High LDL: greater than or equal to 190 mg/dL HDL Cholesterol 52 >40 mg/dL [facility] Comment:Desirable HDL: great er than 40 mg/dL Note: This HDL assay may give artificially low results in patients with liver disease. Blood Venous blood specimen / Unknown 11/23/2023 10:11 AM EDT 11/23/2023 2:23 PM EDT us Hoda Hay MD LAB BLOOD ORDERABLES Final Re sult [facility] [address] [place] [address] [phone] from Last 3 Months or Most Recently Relevant to Health Maintenance Insurance [employer] P[place]ENT[place] [address] [employer] Care Teams Director [employer] Relationship Specialty Start Date End Date Hoda Hay MD [address] [place] [address] PCP - General Family Medicine 08/18/19
--- OUTSIDE RECORDS SUMMARY | 2025-02-04 15:46 | XMS_ITS | Encounter Summary ---
Author Organization [employer] Address [address] [facility] 7 [place] [address] Care Team Providers Care Assistive Technology Specialist Name Role Phone Hoda Hay MD Primary Care Provider [phone] Reason for Visit * Reason Onset Date Comments Nurse Triage 02/13/2024 Encounter Details Date Type Department Care Team ([facility] Contact Info) Description 02/13/2024 Telephone [facility] MEDICINE [address] [place] [address] Hoda Hay MD [address] [place] [address] Nurse Triage Social History Tobacco Use Types [...] documented as of this encounter Care Teams Assistive Technology Specialist Relationship Specialty Start Date End Date Hoda Hay MD [address] [place] [address] PCP - General Family Medicine 08/18/19 documented as of this encounter
--- OUTSIDE RECORDS SUMMARY | 2025-02-04 15:46 | XMS_ITS | Encounter Summary ---
Author Organization [employer] Address [address] [place] [address] 7 [place] [address] Care Team Providers Care Dairy Nutrition Consultant Name Role Phone Hoda Hay MD Primary Care Provider [phone] Encounter Details Date Type Department Care Team (Latest Contact Info) Description 04/07/2021 Abstract [facility] CONVERSIONS Dental, Provider, DDS Social History [...] on filedocumented in this encounter Care Teams Dairy Nutrition Consultant Relationship Specialty Start Date End Date Hoda Hay MD [address] [place] [address] PCP - General Family Medicine 08/18/19 documented as of this encounter
--- OUTSIDE RECORDS SUMMARY | 2025-02-04 15:47 | XMS_ITS | Encounter Summary ---
Author Organization [employer] Address [address] [facility] 7t [place] [address] Care Team Providers Care Truck Supervisor Name Role Phone Hoda Hay MD Primary Care Provider [phone] Encounter Details Date Type Department Care Team (Latest Contact Info) Description 02/04/2025 Travel Social History Tobacco Use Types Packs/Day [...] documented as of this encounter Care Teams Truck Supervisor Relationship Specialty Start Date End Date Hoda Hay MD [address] [place] [address] PCP - General Family Medicine 08/18/19 documented as of this encounter
--- OUTSIDE RECORDS SUMMARY | 2025-02-04 15:47 | XMS_ITS | Encounter Summary ---
Author Organization [employer] Address [address] [place] [address] 7t [place] [address] Care Team Providers Care Truck Railroad And Bus Motor Mechanic Name Role Phone Hoda Hay MD Primary Care Provider [phone] Encounter Details Date Type Department Care Team ([facility] Contact Info) Description 01/29/2025 Orders Only [facility] External Provider, [facility] Social History Tobacco Use Types Packs/Day Years [...] on file documented as of this encounter Procedures Procedure Name Priority Date/Time Associated Diagnosis Comments MR KNEE WO CONTRAST LEFT Routine 01/30/2025 1:17 PM EDT documented in this encounter Results * MR Knee w/o Contrast Left (01/30/2025 1:17 PM EDT) Anatomical Region Laterality Modality Magnetic Resonan ce 01/30/2025 1:17 PM EDT Narrative 01/30/2025 1:19 PM EDT [place] [address] Magnetic Resonance Report Signed Patient: Delphine Petersen MR#: [id number] : 2000 Acct:[id number] Age/Sex: 24 / F ADM Date: 01/29/25 Loc: .MRI Attending Dr: Zo Slater PA-C Ordering Physician: Zo Slater PA-C Date of Service: 01/29/25 Procedure(s): MR knee LT wo con Accession Number(s): [id number] cc: Dakota Livingston MD; Zo Slater PA-C [...] OV> 01/30/25 1318 DD/ 1317 TD/TT: 01/30/25 131 Hogshead Mat Inspector: Procedure Note Donotuseinterpreter, Image - 01/30/2025 [place] [address] Magnetic Resonance Report Signed Patient: Neo Petersen#: [id number] : 2000Acct:[id number] Age/Sex: Date: 01/29/25 Loc: HO.MRI Attending Dr: Zo Slater PA-C Ordering Physician: Zo Slater PA-C Date of Service: 01/29/25 Procedure(s): MR knee LT wo con Accession Number(s): [id number] cc: Dakota Livingston MD; Zo Slater PA-C [...] Coppola MD in OV> 01/30/25 1318 DD/ 16 TD/TT: 01/30/251316 Hogshead Mat Inspector: [facility] External Provider IMG MRI PROCEDURES Final Result documented in this encounter Visit Diagnoses Not on filedocumented in this encounter Additional Health Concerns Assessment Noted Time PHQ-9 Depression Total Score: 5 11/22/19 24 10:32 AM EDT documented as of this encounter Care Teams Truck Railroad And Bus Motor Mechanic Relationship Specialty Start Date End Date Hoda Hay MD [address] [place] [address] PCP - General Family Medicine 08/18/19 documented as of this encounter
[2025-02-04 16:13] LABS: CT PCR NOT DETECTED (Not Detect.); NG PCR NOT DETECTED (Not Detect.)
== END 2025-02-04 12:25 | disposition home or self-care (01) ==
LOC: HO.CHCLDS 12:24
PROVIDERS: Visit Provider Pediatrics
DX: Z01.419 Encounter for gynecological examination (general) (routine) without abnormal findings (principal); Z20.2 Contact with and (suspected) exposure to infections with a predominantly sexual mode of transmission
CPT/HCPCS: 87491; 87591

== ENCOUNTER 2025-02-04 14:40 | Outpatient (REF) | payer OTHER, SELFPAY | END 2025-02-04 14:41 | disposition home or self-care (01) | LOC: HO.HHCLNP 14:40 | PROVIDERS: Visit Provider Pediatrics | DX: Z01.419 Encounter for gynecological examination (general) (routine) without abnormal findings (principal) | CPT/HCPCS: 88175 ==

== ENCOUNTER 2025-03-04 09:54 | Outpatient (AMB) | payer OTHER, SELFPAY ==
--- NOTE | 2025-03-04 09:58 | A.OFFVIS_ITS ---
Vital Signs 3 03/04/25 10:04 Height 5 ft 3 in Weight 244 lb BMI 43.2 BP 136/89 Blood Pressure Location Lt brachial Position Sitting Pulse 94 Intake Visit Reasons: Lump~ Rt axilla Intake Note: Patient is seen in office for evaluation and treatment of a lump in the right axilla. Pt c/o: onset 03/2024, denies increase/decrease, on the right axilla, denies pain, discomfort, discharge or any signs of infections us:01/01/25 Hospital Recruiter Required: No Accompanied by: Self / Same As Patient Allergies diclofenac Allergy (Verified 03/04/25 10:03) Rash Medication List - Last Reconciled 03/04/25 by Gonzalez Valencia MD ibuprofen 800 mg PO Q8H PRN 30 days HPI Comments Details: 24-year-old female presents with concerns regarding a right upper extremity soft tissue mass. She reports that she felt it several weeks to several months ago and has been worried about it. Ultrasound of the region is indicative most likely of a superficial soft tissue lipoma involving the medial aspect of the proximal right upper extremity. She denies any trauma or instrumentation to the region. [facility] Medical History No known health problems Surgical History Hx of hand surgery Social History Patient Tobacco Use Status: Never used Tobacco Current occupational status: unemployed Current occupation: right hand dominant Review of Systems Const All systems reviewed & are unremarkable except as noted in HPI and below Physical Exam Vital Signs: Last Vital Signs Pulse 94 03/04/25 10:04 BP 136/89 03/04/25 10:04 BMI result Body Mass Index 43.2 Const General: cooperative, healthy appearing and comfortable Nutritional Appearance: obese HEENT Head: Yes normal to inspection, Yes normocephalic and Yes atraumatic Eyes General: appearance normal, both eyes and all related structures Pupils: Equal, round and reactive pupils present EOM: EOMs intact bilaterally Neck Neck: Yes normal visual inspection Chest Chest palpation & inspection: normal inspection of the chest Chest/axillae images: 2 1. Subtle 2 cm mobile soft tissue mass consistent with lipoma Resp Effort & Inspection: normal respiratory effort and able to speak in complete sentences Cardio Rate: regular rate Rhythm: regular rhythm GI Inspection: Yes normal to inspection General: Yes no CVA tenderness Back/Spine/Pelvis Back: no CVA tenderness Cervical Spine: normal cervical lordosis Thoracic/Lumbar Spine: thoracic and lumbar spine normal to inspection Neuro Cranial nerves: Yes Equal, round and reactive pupils present Extrem General: Yes normal to inspection Assessment & Plan Assessment & Plan (1) Lipoma: Code(s): D17.9 - Benign lipomatous neoplasm, unspecified Category: Medical Plan: I told the patient that her history, physical examination and ultrasonographic findings were consistent with a superficial soft tissue lipoma involving the proximal medial aspect of the right upper extremity. We reviewed options and she is interested in excisional biopsy. We then discussed the nature of excisional biopsy and reviewed the risks that are involved; these include but are not limited to bleeding, infection, chronic pain and scarring. She indicated that she understood. She told me that she accepted these risks and still wished to proceed with excisional biopsy. Coding Level of Care Code New Pt Level 3 (50284) Diagnoses Lipoma D17.9 Time Spent (min) 30 Comment Patient visit record review and coordination of care
[2025-03-04 10:04] VITALS: BP 136/89; PULSE 94; BMI 43.2
--- OUTSIDE RECORDS SUMMARY | 2025-03-04 11:32 | XMS_ITS | Encounter Summary ---
Author Organization [employer] Address [address] [place] [address] 7 [place] [address] Care Team Providers Care Tire Setter Name Role Phone Hoda Hay MD Primary Care Provider [phone] Encounter Details Date Type Department Care Team (Latest Contact Info) Description 04/07/2021 Abstract [facility] CONVERSIONS Dental, Provider, DDS Social History [...] on filedocumented in this encounter Care Teams Tire Setter Relationship Specialty Start Date End Date Hoda Hay MD [address] [place] [address] PCP - General Family Medicine 08/18/19 documented as of this encounter
--- OUTSIDE RECORDS SUMMARY | 2025-03-04 11:32 | XMS_ITS | Clinical Summary ---
Author Organization [facility] Address [address] [place] [address] Care Team Providers Care Computer Typesetter Name Role Phone Unavailable Primary Care Provider [...] Depression Screening 04/09/2024 COVID-19 Vaccine ( - 2024-2 6 season) 2024 Influenza Vaccine (#1) 2024 RSV [...]
--- OUTSIDE RECORDS SUMMARY | 2025-03-04 11:32 | XMS_ITS | Encounter Summary ---
Author Organization [employer] Address [address] [place] [address] 7 [place] [address] Care Team Providers Care Leather Craftsman Name Role Phone Hoda Hay MD Primary Care Provider [phone] Reason for Referral * Consultation (Routine) - Closed Specialty Diagnoses / Procedures Referred By Jhoana hernandez Referred To Contact General Surgery Diagnoses Lump in armpit, right Dakota Livingston MD [address] [place] [address] Phone: tel: fax: [facility] General Surgeons [address] [place] [address] 3rd Floor [place], [place] Phone: tel: fax: Referral ID Status Reason Start Date Expiration Date V isits Requested Visits Authorized [id number] Closed Specialty Services Required 01/05/2025 01/05/2026 1 1 Encounter Details Date Type Department Care Team (Late st Contact Info) Description 01/05/2025 Orders Only [facility]S [address] [place], [place] [phone] Dakota Livingston MD [address] [place], [place] [phone] Lump in armpit, right (Primary Dx) Social [...] General Surgery Outpatient Referral [facility]ine [facility] Expected: 01/05/2025 (Approximate), Expires: 01/05/2026 documented as of this encounter Visit Diagnoses Diagnosis Lump in armt, right- Primary documented in this encounter Additional Health Concerns Assessment Noted Time PHQ-9 Depression Total Score: 5 11/22/19 24 10:32 AM EDT documented as of this encounter Care Teams Leather Craftsman Relationship Specialty Start Date End Date Hoda Hay MD [address] [place] [address] PCP - General Family Medicine 08/18/19 documented as of this encounter
--- OUTSIDE RECORDS SUMMARY | 2025-03-04 11:32 | XMS_ITS | Clinical Summary ---
Author Organization [employer] Address [address] [place] [address] 7t [place] [address] Care Team Providers Care Vp Marketing Name Role Phone Hoda Hay MD Primary Care Provider [phone] Allergies Active Allergy Reactions Criticality Noted Date [...] III, BMI 40-49.9 (morbid obesity) ([facility]) Inject 0.25 mg under the skin [...] Encounters Date Type Department Care Team Description 02/05/2025 Results Follow-Up [facility] [address] [place] [address] Hoda Hay MD Chlamydia/N. Gonorrhoeae RNA, TMA, Vaginal, Pap Smear 02/04/2025 9:45 AM EDT Procedure Visit [facility] [address] [place] [address] Hoda Hay MD Class 1 obesity (Primary Dx); Obesity, Class III, BMI 40-49.9 (morbid obesity) ([facility]); Irregular periods/menstrual cycles; Encounter for gynecological examination with Papanicolaou smear of cervix 02/04/2025 Travel 01/29/2025 Orders Only [facility] External Provider, [facility] 01/07/2025 Results Follow-Up [facility] [address] [place] [address] Guillermina Oh RN US EXTREMITY NON-VASCULAR RIGHT LIMITED 01/07/2025 Telephone [facility] [address] [place], [place] [id number] Hoda Hay MD Call back 01/05/2025 Orders Only [facility] [address] [place] [address] Dakota Livingston MD Lump in armpit, right (Primary Dx) 01/01/2025 Orders Only [facility] [address] [place] [address] Dakota Livingston MD 12/23/2024 10:30 AM EDT Office Visit [facility] [address] [place], [place] [phone] Hoda Hay MD Chronic upper back pain (Primary Dx); Obesity, Class III, BMI 40-49.9 (morbid obesity) 12/23/2024 Travel from Last 3 Months Immunizations Immunization [...] is your housing situation today? I have saurabhstephanie aldrich 11/22/[address] you [...] Health Maintenance Due Date Last Done Comments Dental X-Ray: Full Mouth 2001 HIV Screening 2001 Disability Screening 2001 Alcohol/Substance Use Screening 2013 Meningococcal B Vaccine (1 of 2 - Standard) 2017 Hepatitis C Screening 2019 Dental Oral Exam 07/23/2020 01/22/2020, , 03/04/2018, Additional history exists Dental X-Ray: Bitewings 01/22/2021 01/22/20, 12/18/2014, 06/02/2013, Additional history exists Dental Prophylaxis 10/07/2021 04/07/2021, 0 11/01/2018, 03/04/2018, Additional history exists Depression Screening 11/21/2024 11/22/2023, 11/22/19 24 SDOH Screening 11/21/2024 11/22/2023 COVID-19 Vaccine ( season) 2024 12/17/2023, 08/12/2020, 08/03/2020 Influenza Vaccine (#1) 2024 , 02/03/2020, 06/06/2013 Family Planning (PISQ) 12/23/2025 12/23/2024 Chlamydia and Gonorrhea Screening 02/04/2026 02/04/2025 Tobacco Screening 02/04/2026 02/04/2025 Pap Smear 02/05/2028 02/04/2025 Lipid Panel 11/22/2028 11/23/2023 DTaP/Tdap/Td Vaccines [...] history exists Meningococcal Vaccine Completed 02/03/2020, 013 HIB Vaccines Aged Out No longer eligi [...] Procedure Name Priority Date/Time Associated Diagnosis Comments PAP SMEAR Routine 02/04/2025 10:15 AM EDT Encounter for gynecological examination with Papanicolaou smear of cervix CHLAMYDIA/N. GONORRHOEAE RNA, TMA, UROGENITAL Routine 02/04/2025 10:15 AM EDT Encounter for gynecological examination with Papanicolaou smear of cervix MR KNEE WO CONTRAST LEFT Routine 01/30/2025 1:17 PM EDT US EXTREMITY NON-VASCULAR RIGHT LIMITED Routine 01/01/2025 2:51 PM EDT LIPID PANEL, STANDARD Routine 11/23/2023 10:11 AM EDT Mass of right thigh Class 1 obesity PROPHYLAXIS - ADULT Routine 04/07/2021 1 2:00 AM EST BITEWINGS - 4 RADIOGRAPHIC IMAGES Routine 01/22/2020 12:00 AM EDT PERIODIC ORAL EVALUATION - ESTABLISHED PATIENT Routine 01/22/2020 12:00 AM EDT from Last 3 Months or Most Recently Relevant to Health Maintenance Results * Chlamydia/N. Gonorrhoeae RNA, TMA, Vaginal (02/04/2025 10:15 AM EDT) CT PCR NOT DETECTED Not Detect. [facility] Comment:A not detected test result does not exclude the possibilityof infection because test results can be affected byimproper specimen collection, concurrent antibiotic therapy,or the number of organisms in the specimen which may bebelow the sensitivity of the test. As with many diagnostictests, results from the Xpert CT/NG assay should beinterpreted in conjunction with other laboratory andclinical data available to the clinician.Xpert CT/NG performance has not been evaluated in patientsless than 14 years of age. The assay should not be used forthe evaluationof suspected sexual abuse or for other medico-legalindications. Additional testing is recommended in anycircumstance when false positive or false negative resultscould lead to adverse medical, social or psychologicalconsequences. NG PCR NOT DETECTED Not Detect. [facility] Comment:A not detected test result does not exclude the possibilityof infection because test results can be affected byimproper specimen collection, concurrent antibiotic therapy,or the number of organisms in the specimen which may bebelow the sensitivity of the test. As with many diagnostictests, results from the Xpert CT/NG assay should beinterpreted in conjunction with other laboratory andclinical data available to the clinician.Xpert CT/NG performance has not been evaluated in patientsless than 14 years of age. The assay should not be used forthe evaluationof suspected sexual abuse or for other medico-legalindications. Additional testing is recommended in anycircumstance when false positive or false negative resultscould lead to adverse medical, social or psychologicalconsequences. Swab (Vaginal Swab) 02/04/2025 10:15 AM EDT 02/04/2025 1:57 PM EDT us Hoda Hay MD LAB MICROBIOLOGY - GENERAL OR DERABLES Final Result [facility] [address] [place] [phone] * Pap Smear (02/04/2025 10:15 AM EDT) Swab Cervical swab / Unknown 02/04/2025 10:15 AM EDT 02/04/2025 2:55 PM EDT [facility] - 02/11/2025 1:09 PM EST ----- ------- Name: Delphine Petersen Age/Sex: 24/F : 2000 Unit#: [id number] Attend Dr: Hoda Hay MD Re02/04/25 Status: DEP REF Location: HO.HHCLNP Disch: ----- ------- SPEC : [id number] RECD: 02/04/25 STATUS: CAMI DUNNE NUM: [id number] IVAN: 02/04/25-1015 [facility] DR: Hoda Hay MD ENTERED: 02/04/25 SP TYPE: Pap Sandy SEALS DR: ORDERED: Pap Smear Interpretation Satisfactory for evaluation. Negative for intraepithelial lesion or malignancy. Clinical Information LMP: Unknown date Previous PAP test: First Pap Other history: Encounter for gynecological examination with Papanicolaou smear of cervix Material Received ThinPrep-Cervical PAP Disclaimer As of January 30, 2024, the technical services to include automated prescreening performed by the ThinPrep Imaging System, PAP screening and HPV testing will be performed at [facility] (CLIA #[id number]), [address] [place] [address]. Testing for HPV was performed using the [employer] DREA 6800 system. The presence of HPV in the female genital tract is associated with a number of diseases, including cervical carcinoma. The HPV DNA high risk pool tests for HPV 31, 33, 35, 39, 45, 51, 52, 56, 58, 59, 66 and 68. The testing for HPV 16 and 18 genotypes has also been performed. A positive result indicates detection of nucleic acid sequences from one or more subtypes, whereas a negative result indicates such sequences were not detected. All professional services are performed by [facility] ([address] [place], [place] [id number]; ; CLIA #[id number]). The PAP Test is a screening procedure with the inherent possibility of both false negative and false positive results. Results should be interpreted in the context of historic and current clinical findings. Reliability of the PAP Test is enhanced by performing the test on a regular repetitive basis. ----- ------- Signed (signature on file) MARY Sam (ASCP) 02/11/25 1309 ----- ------- END OF REPORT us Hoda Hay MD LAB CYTOLOGY ORDERABLES Final Result [facility] [address] [place] [phone] * MR Knee w/o Contrast Left (01/30/2025 1:17 PM EDT) Anatomical Region Laterality Modality Magnetic Resonan ce 01/30/2025 1:17 PM EDT Narrative 01/30/2025 1:19 PM EDT [address] [address] Magnetic Resonance Report Signed Patient: Delphine Petersen MR#: [id number] : 2000 Acct:[id number] Age/Sex: 24 / F ADM Date: 01/29/25 Loc: HO.MRI Attending Dr: Zo Slater PA-C Ordering Physician: Zo Slater PA-C Date of Service: 01/29/25 Procedure(s): MR knee LT wo con Accession Number(s): [id number] cc: Dakota Livingston MD; Zo Slater PA-C [...] Coppola MD Signed By: <Electronically signed by Padreep Coppola MD in OV> 01/30/25 1318 DD/ 1317 TD/TT: 01/30/25 1317 Voice Data Communications Engineer: Procedure Note Donotuseinterpreter, Image - 01/30/2025 [place] [address] Magnetic Resonance Report Signed Patient: Neo Petersen#: [id number] : 2000Acct:[id number] Age/Sex: 24 / FADM Date: 01/29/25 Loc: HO.MRI Attending Dr: Zo Slater PA-C Ordering Physician: Zo Slater PA-C Date of Service: 01/29/25 Procedure(s): MR knee LT wo con Accession Number(s): [id number] cc: Dakota Livingston MD; Zo Slater PA-C [...] 01/30/25 1318 DD/ 1317 TD/TT: 01/30/25 1317 Voice Data Communications Engineer: [facility] External Provider IMG MRI PROCEDURES Final Result * US EXTREMITY NON-VASCULAR RIGHT LIMITED (01/01/2025 2:51 PM EDT) Anatomical Region Laterality Modality Ultrasound 01/01/2025 2:51 PM EDT Narrative 01/01/2025 3:16 PM EDT [address] [address] Ultrasound Report Signed Patient: Delphine Petersen MR#: [id number] : 2000 Acct:[id number] Age/Sex: 24 / F ADM Date: 01/01/25 Loc: HO.US Attending Dr: Dakota Livingston MD Ordering Physician: Dakota Livingston MD Date of Service: 01/01/25 Procedure(s): US Extremity Nonvas Limited RT Accession Number(s): [id number] cc: Dakota Livingston MD Reason for Exam: [...] 01/01/25 1513 DD/ 1451 TD/TT: 01/01/25 1454 Voice Data Communications Engineer: Procedure Note Donotuseinterpreter, Image - 01/01/[address] [address] Ultrasound Report Signed Patient: Delphine PetersenMR#: [id number] : 2000Acct:[id number] Age/Sex: 24 FADM Date: 01/01/25 Loc: HO.US Attending Dr: Dakota Livingston MD Ordering Physician: Dakota Livingston MD Date of Service: 01/01/25 Procedure(s): US Extremity Nonvas Limited RT Accession Number(s): [id number] cc: Dakota Livingston MD Reason for Exam: [...] 01/01/25 1513 DD/ 1451 TD/TT: 01/01/25 1454 Voice Data Communications Engineer: us Dakota Livingston MD IMG US PROCEDURES Final Res ult * (ABNORMAL) Lipid Panel, Standard (11/23/2023 10:11 AM EDT) Triglycerides 74 <150 mg/dL [facility] Comment:Desirable Triglyceri de: less than 150 mg/dLBorderline High Triglyceride 150-199 mg/dLHigh Triglyceride: 200-499 mg/dLVery High Triglyceride: greater than or equal to 5OO mg/dL Cholesterol 179 <200 mg/dL [facility] Comment:Desirable Cholestero l: less than 200 mg/dLBorderline High Cholesterol: 200-239 mg/dLHigh Cholesterol: greater than 239 mg/dL LDL Cholesterol Calculated 113(H) <100 mg/dL [facility] Comment:Desirable LDL: less than 100 mg/dLNear Optimal/Above Optimal LDL: 110- 129 mg/dLBorderline High LDL: 130-159 mg/dLHigh LDL: 160-189 mg/dLVery High LDL: greater than or equal to 190 mg/dL HDL Cholesterol 52 >40 mg/dL [facility] Comment:Desirable HDL: great er than 40 mg/dL Note: This HDL assay may give artificially low results in patients with liver disease. Blood Venous blood specimen / Unknown 11/23/2023 10:11 AM EDT 11/23/2023 2:23 PM EDT us Hoda Hay MD LAB BLOOD ORDERABLES Final Re sult [facility] [address] [place] [phone] from Last 3 Months or Most Recently Relevant to Health Maintenance Insurance [employer] PPO DENTAL - [employer] Care Teams Vp Marketing Relationship Specialty Start Date End Date Hoda Hay MD [address] [place] [phone] PCP - General Family Medicine 08/18/19
--- OUTSIDE RECORDS SUMMARY | 2025-03-04 11:32 | XMS_ITS | Encounter Summary ---
Author Organization [employer] Address [address] [facility] 7 [place] [address] Care Team Providers Care Production Line Assembler Name Role Phone Hoda Hay MD Primary Care Provider Reason for Visit * Reason Onset Date Comments Nurse Triage 02/13/2024 Encounter Details Date Type Department Care Team ([facility] Contact Info) Description 02/13/2024 Telephone [facility] [address] [place] [address] Hoda Hay MD [address] [place] [address] Nurse Triage Social History Tobacco Use Types [...] documented as of this encounter Care Teams Production Line Assembler Relationship Specialty Start Date End Date Hoda Hay MD [address] [place] [address] PCP - General Family Medicine 08/18/19 documented as of this encounter
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
== END 2025-03-04 10:11 | disposition home or self-care (01) ==
LOC: HO.HGS 09:55
PROVIDERS: Visit Provider Surgery
DX: D17.21 Benign lipomatous neoplasm of skin and subcutaneous tissue of right arm (principal)
CPT/HCPCS: 99203

== ENCOUNTER 2025-03-13 15:16 | Outpatient (REF) | payer OTHER, SELFPAY ==
[2025-03-13 18:27] LABS: MANUAL DIFF FLAG NO
[2025-03-13 18:37] LABS: Hematocrit 39.1 % (37.0-47.0); Hemoglobin 12.9 g/dl (12.0-16.0); Imm Gran Abs Auto 0.03 X10*3/uL (0.00-0.03); Imm Gran Pct Auto 0.3 % (0.0-0.4); Lymphocytes Absolute Auto 3.3 X10*3/uL (1.2-4.9); Mean Corpuscular HGB Conc 33.0 g/dl (31.0-35.0); Mean Corpuscular Hemoglobin 30.1 pg (27.0-33.0); Mean Corpuscular Volume 91.1 fL (80.0-98.0); NRBC Abs Auto 0.000 X10*3/uL (0.0-0.012); NRBC Pct Auto 0.0 /100WBC (0.0-0.2); Platelet Count 395 X10*3/uL (160-400); Red Blood Count 4.29 X10*6/uL (4.20-5.50); White Blood Count 10.8 X10*3/uL (4.8-10.8)
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
--- OUTSIDE RECORDS SUMMARY | 2025-03-13 19:13 | XMS_ITS | Encounter Summary ---
Author Organization [email or web address] Address [address] [facility] 7 [place] [address] Care Team Providers Care Food Supervisor Name Role Phone Hoda Hay MD Primary Care Provider [phone] Reason for Visit * Reason Onset Date Comments Lab Orders 03/04/2025 Encounter Details Date Type Department Care Team ([facility] Contact Info) Description 03/04/2025 Telephone [facility] [address] [place] [address] Hoda Hay MD [address] [place] [address] Lab Orders Social History Tobacco Use Types [...] encounter Miscellaneous Notes * Telephone Encounter - Nadiya Galen - 03/04/2025 12:53 PM EST Tc from pt requesting to get lab to see if she had lead in her system due to her apartment next door has high lead. PCP Dr. Hay documented in this encounter Plan of Treatment Not on file documented as of this encounter Visit Diagnoses Not on filedocumented in this encounter Additional Health Concerns Assessment Noted Time PHQ-9 Depression Total Score: 5 11/22/19 24 10:32 AM EDT documented as of this encounter Care Teams Food Supervisor Relationship Specialty Start Date End Date Hoda Hay MD [address] [place] [phone] PCP - General Family Medicine 08/18/19 documented as of this encounter
--- OUTSIDE RECORDS SUMMARY | 2025-03-13 19:13 | XMS_ITS | Encounter Summary ---
Author Organization [employer] Address [address] [facility] 7t [place] [address] Care Team Providers Care Commercial Specialist Name Role Phone Hoda Hay MD Primary Care Provider [phone] Encounter Details Date Type Department Care Team (Latest Contact Info) Description 03/11/2025 Travel Social History Tobacco Use Types Packs/Day [...] documented as of this encounter Care Teams Commercial Specialist Relationship Specialty Start Date End Date Hoda Hay MD [address] [place] [address] PCP - General Family Medicine 08/18/19 documented as of this encounter
--- OUTSIDE RECORDS SUMMARY | 2025-03-13 19:13 | XMS_ITS | Encounter Summary ---
Author Organization [employer] Address [address] [facility] 7 [place] [address] Care Team Providers Care Microfilmer Name Role Phone Hoda Hay MD Primary Care Provider [phone] Reason for Visit * Reason Onset Date Comments Nurse Triage 02/13/2024 Encounter Details Date Type Department Care Team ([facility] st Contact Info) Description 02/13/2024 Telephone [facility] [address] [place] [address] Hoda Hay MD [address] [place] [address] Nurse Triage Social History Tobacco Use Types [...] documented as of this encounter Care Teams Microfilmer Relationship Specialty Start Date End Date Hoda Hay MD [address] [place] [address] PCP - General Family Medicine 08/18/19 documented as of this encounter
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
--- OUTSIDE RECORDS SUMMARY | 2025-03-13 19:14 | XMS_ITS | Encounter Summary ---
Author Organization [employer] Address [address] [place] [address] 7 [place] [address] Care Team Providers Care Medical Records Auditor Name Role Phone Hoda Hay MD Primary Care Provider [phone] Encounter Details Date Type Department Care Team (Latest Contact Info) Description 04/07/2021 Abstract [facility] Dental, Provider, DDS Social History Tobacco [...] on filedocumented in this encounter Care Teams Medical Records Auditor Relationship Specialty Start Date End Date Hoda Hay MD [address] [place] [address] PCP - General Family Medicine 08/18/19 documented as of this encounter
--- OUTSIDE RECORDS SUMMARY | 2025-03-13 19:14 | XMS_ITS | Clinical Summary ---
Author Organization [employer] Address [address] [place] [address] 7t [place] [address] Care Team Providers Care Group Account Director Name Role Phone Hoda Hay MD Primary Care Provider [phone] Allergies Active Allergy Reactions Criticality Noted Date [...] Encounters Date Type Department Care Team Description 03/13/2025 Telephone [facility] [address] [place] [address] Hoda Hay MD Lab Orders 03/11/2025 Travel 03/11/[address] [address] Hoda Hay MD Nurse Triage 03/04/2025 Orders Only [facility] [address] [place] [address] Hoda Hay MD H/O lead exposure (Primary Dx) 03/04/[address] [address] Hoda Hay MD Lab Orders 02/05/2025 Results Follow-Up [facility] [address] [place] [address] Hoda Hay MD Chlamydia/N. Gonorrhoeae RNA, TMA, Vaginal, Pap Smear 02/04/2025 9:45 AM EDT Procedure Visit [facility] [address] [place] [address] Hoda Hay MD Class 1 obesity (Primary Dx); Obesity, Class III, BMI 40-49.9 (morbid obesity) (HCC); Irregular periods/menstrual cycles; Encounter for gynecological examination with Papanicolaou smear of cervix 02/04/2025 Travel 01/29/2025 Orders Only [facility] External Provider, [facility] 01/07/2025 Results Follow-Up [facility] [address] [place] [address] Guillermina Oh RN US EXTREMITY NON-VASCULAR RIGHT LIMITED 01/07/2025 Telephone [facility] [address] [place] [address] Hoda Hay MD Call back 01/05/2025 Orders Only [facility] [address] [place] [address] Dakota Livingston MD Lump in armpit, right (Primary Dx) 01/01/2025 Orders Only [facility] [address] [place] [address] Dakota Livingston MD 12/23/2024 10:30 AM EDT Office Visit [facility] [address] [place] [address] Hoda Hay MD Chronic upper back pain [...] history exists Depression Screening 11/21/2024 11/22/2023, 11/22/19 SDOH Screening 11/21/2024 11/22/2023 COVID-19 Vaccine ( [...] Procedure Name Priority Date/Time Associated Diagnosis Comments CBC WITH AUTO DIFFERENTIAL Routine 03/13/2025 3:18 PM EST H/O lead exposure PAP SMEAR Routine 02/04/2025 10:15 AM EDT [...] Recently Relevant to Health Maintenance Results * (ABNORMAL) CBC auto differential (03/13/2025 3:18 PM EST) White Blood Count 10.8 4.8 - 10.8 X10*3/uL [facility] Red Blood Count 4.29 4.20 - 5.50 X10*6/uL [facility] Hemoglobin 12.9 12.0 - 16.0 g/dl [facility] Hematocrit 39.1 37.0 - 47.0 % [facility] Mean Corpuscular Volume 91.1 80.0 - 98.0 fL [facility] Mean Corpuscular Hemoglobin 30.1 27.0 - 33.0 pg [facility] Mean Corpuscular HGB Conc 33.0 31.0 - 35.0 g/dl [facility] Red Cell Distribution Width 13.5 11.0 - 16.0 % [facility] Platelet Count 395 160 - 400 X10*3/uL [facility] Mean Platelet Volume 9.3(L) 9.4 - 12.3 fL [facility] Neutrophils Percent Auto 61.3 45 - 73 % [facility] Imm Gran Pct Auto 0.3 0.0 - 0.4 % [facility] Lymphocytes Percent Auto 30.7 20 - 40 % [facility] Monocytes Percent Auto 7.1 2 - 11 % [facility] Eosinophils Percent Auto 0.2 0 - 4 % [facility] Basophils Percent Auto 0.4 0 - 2 % [facility] NRBC Pct Auto 0.0 0.0 - 0.2 /100WBC [facility] Neutrophils Absolute Auto 6.7 2.0 - 8.3 x10*3/uL [facility] Imm Gran Abs Auto 0.03 0.00 - 0.03 X10*3/uL [facility] Lymphocytes Absolute Auto 3.3 1.2 - 4.9 X10*3/uL [facility] Monocytes Absolute Auto 0.8 0.1 - 1.2 X10*3/uL [facility] Eosinophils Absolute Auto 0.0 0.0 - 0.4 X10*3/uL [facility] Basophils Absolute Auto 0.0 0.0 - 0.2 X10*3/uL [facility] NRBC Abs Auto 0.000 0.0 - 0.012 X10*3/uL [facility] Blood Venous blood specimen / Unknown 03/13/2025 3:18 PM EST 03/13/2025 6:25 PM EST us Hoda Hay MD LAB BLOOD ORDERABLES Final Re sult [facility] [address] [place] [phone] * Chlamydia/N. Gonorrhoeae RNA, TMA, Vaginal (02/04/2025 10:15 AM EDT) CT PCR NOT DETECTED Not Detect. [facility] Comment:A not detected test result [...] psychologicalconsequences. NG PCR NOT DETECTED Not Detect. [facility] Comment:A not detected test result [...] MICROBIOLOGY - GENERAL OR DERABLES Final Result [facility] [address] [place] [phone] * Pap Smear (02/04/2025 10:15 AM EDT) Swab Cervical swab / Unknown 02/04/2025 10:15 AM EDT 02/04/2025 2:55 PM EDT Narrative [facility] - 02/11/2025 1:09 PM EST ----- ------- Name: Delphine Petersen Age/Sex: 24/F : 2000 Unit#: [id number] Attend Dr: Hoda Hay MD Re02/04/25 Status: [facility] REF Location: [facility] Disch: ----- ------- SPEC : [id number] RECD: 02/04/25 STATUS: CAMI DUNNE NUM: [id number] IVAN: 02/04/[address] [facility] [address]: Hoda Hay MD ENTERED: 02/04/25 SP TYPE: Pap Smr OTHR DR: ORDERED: Pap Smear Interpretation Satisfactory for [...] and HPV testing will be performed at [facility] (CLIA #[id number]), [address] [place] [address]. Testing for HPV was performed using the Enrique DREA 6800 system. The presence of HPV [...] detected. All professional services are performed by [facility] ([address] [place] [phone]; ; CLIA #[id number]). The PAP Test is a screening procedure with the inherent possibility of both false negative and false positive results. Results should be interpreted in the context of historic and current clinical findings. Reliability of the PAP Test is enhanced by performing the test on a regular repetitive basis. ----- ------- Signed (signature on file) MARY Sam ([facility]) 02/11/25 1309 ----- ------- END OF REPORT us Hoda Hay MD LAB CYTOLOGY ORDERABLES Final Result [facility] [address] [place] [phone] [phone] * MR Knee w/o Contrast Left (01/30/2025 1:17 PM EDT) Anatomical Region Laterality Modality Magnetic Resonan ce 01/30/2025 1:17 PM EDT Narrative 01/30/2025 1:19 PM EDT [address] [address] Magnetic Resonance Report Signed Patient: Delphine Petersen MR#: [id number] : 2000 Acct:[id number] Age/Sex: 24 / F ADM Date: 01/29/25 Loc: HO.MRI Attending Dr: Zo Slater PA-C Ordering Physician: Zo Slater PA-C Date of Service: 01/29/25 Procedure(s): MR knee LT wo con Accession Number(s): [id number] cc: Daokta Livingston MD; Zo Slater PA-C Reason for [...] 01/30/25 1318 DD/ 1317 TD/TT: 01/30/25 1317 Windows Server Administrator: Procedure Note Donotuseinterpreter, Image - 01/30/2025 [place] [address] Magnetic Resonance Report Signed Patient: Neo Petersen#: [id number] : 2000Acct:[id number] Age/Sex: 24 FADM Date: 01/29/25 Loc: HO.MRI Attending Dr: Zo Slater PA-C Ordering Physician: Zo Slater PA-C Date of Service: 01/29/25 Procedure(s): MR knee LT wo con Accession Number(s): [id number] cc: Dakota Livingston MD; Zo Slater PA-C [...] OV> 01/30/25 1318 DD/ 16 TD/TT: 01/30/251316 Windows Server Administrator: [facility] External Provider IMG MRI PROCEDURES Final Result * US EXTREMITY NON-VASCULAR RIGHT LIMITED (01/01/2025 2:51 PM EDT) Anatomical Region Laterality Modality Ultrasound 01/01/2025 2:51 PM EDT Narrative 01/01/2025 3:16 PM EDT [place] [address] Ultrasound Report Signed Patient: Delphine Petersen MR#: [id number] : 2000 Acct:[id number] Age/Sex: 24 / F ADM Date: 01/01/25 Loc: HO.US Attending Dr: Dakota Livingston MD Ordering Physician: Dakota Livingston MD Date of Service: 01/01/25 Procedure(s): US Extremity Nonvas Limited RT Accession Number(s): [id number] cc: Dakota Livingston MD Reason for Exam: [...] 01/01/25 1513 DD/ 1451 TD/TT: 01/01/25 1454 Windows Server Administrator: Procedure Note Donotuseinterpreter, Image - 01/01/2025 [place] [address] Ultrasound Report Signed Patient: Neo Petersen#: [id number] : 2000Acct:[id number] Age/Sex: 24 / FADM Date: 01/01/25 Loc: HO.US Attending Dr: Dakota Livingston MD Ordering Physician: Dakota Livingston MD Date of Service: 01/01/25 Procedure(s): US Extremity Nonvas Limited RT Accession Number(s): [id number] cc: Dakota Livingston MD Reason for Exam: [...] 01/01/25 1513 DD/ 1451 TD/TT: 01/01/25 1454 Windows Server Administrator: us Dakota Livingston MD IMG US PROCEDURES Final Res ult * (ABNORMAL) Lipid Panel, Standard (11/23/2023 10:11 AM EDT) Triglycerides 74 <150 mg/dL [facility] Comment:Desirable Triglyceri de: less than 150 mg/dLBorderline High Triglyceride 150-199 mg/dLHigh Triglyceride: 200-499 mg/dLVery High Triglyceride: greater than or equal to 5OO mg/dL Cholesterol 179 <200 mg/dL [facility] Comment:Desirable Cholestero l: less than 200 mg/dLBorderline High Cholesterol: 200-239 mg/dLHigh Cholesterol: greater than 239 mg/dL LDL Cholesterol Calculated 113(H) <100 mg/dL [facility] Comment:Desirable LDL: less than 100 mg/dLNear Optimal/Above Optimal LDL: 110- 129 mg/dLBorderline High LDL: 130-159 mg/dLHigh LDL: 160-189 mg/dLVery High LDL: greater than or equal to 190 mg/dL HDL Cholesterol 52 >40 mg/dL [facility] Comment:Desirable HDL: great er than 40 mg/dL Note: This HDL assay may give artificially low results in patients with liver disease. Blood Venous blood specimen / Unknown 11/23/2023 10:11 AM EDT 11/23/2023 2:23 PM EDT Hoda Hay MD LAB BLOOD ORDERABLES Final Re sult [facility] [address] [place] [address] [phone] from Last 3 Months or Most Recently Relevant to Health Maintenance Insurance [employer] P[employer] DENTAL - [employer] Care Teams Group Account Director Relationship Specialty Start Date End Date Hoda Hay MD [address] [place] [phone] PCP - General Family Medicine 08/18/19
--- OUTSIDE RECORDS SUMMARY | 2025-03-13 19:14 | XMS_ITS | Encounter Summary ---
Author Organization [employer] Address [address] [facility] 7 [place] [address] Care Team Providers Care Superintendent Car Construction Name Role Phone Hoda Hay MD Primary Care Provider [phone] Reason for Visit * Reason Onset Date Comments Nurse Triage 03/11/2025 Encounter Details Date Type Department Care Team ([facility] st Contact Info) Description 03/11/2025 Telephone [facility] [address] [place] [address] Hoda Hay MD [address] [place] [address] Nurse Triage Social History Tobacco Use Types [...] encounter Miscellaneous Notes * Telephone Encounter - Guillermina Oh RN - 03/11/2025 2:10 PM EST TC placed to pt who reports she has had 4 days of urinary symptoms which include painful urination,increased frequency, and urgency. Pt denies fevers , chills, discharge, odor, or abdominal pain. Ptscheduled in walk in center tomorrow at pt request for transportation. Protocol Used: Urinary Symptoms (Adult) Protocol-Based Disposition: See in Office or Video Visit Today Video visit offer not recorded Positive Triage Questions: * Urinating more frequently than usual (i.e., frequency) OR new-onset of the feeling of an urgent need to urinate (i.e., urgency) * Patient wants to be seen * All higher-acuity triage questions were negative. Care Advice Discussed: * Reasons To Call Back - Fever occurs - You become worse * Telephone Encounter - Shellie Isaias Nunez - 03/11/2025 12:25 PM EST Symptom: Urine Symptoms Outcome: Schedule an urgent appointment (within 4 hours) or talk to a nurse or provider soon Reason: Pain when passing urine (peeing) The caller accepted this outcome. Contact pt at [phone] documented in this encounter Plan of Treatment Not on file documented as of this encounter Visit Diagnoses Not on filedocumented in this encounter Additional Health Concerns Assessment Noted Time PHQ-9 Depression Total Score: 5 11/22/19 24 10:32 AM EDT documented as of this encounter Care Teams Superintendent [employer] Construction Relationship Specialty Start Date End Date Hoda Hay MD [address] [place] [phone] PCP - General Family Medicine 08/18/19 documented as of this encounter
--- OUTSIDE RECORDS SUMMARY | 2025-03-13 19:14 | XMS_ITS | Encounter Summary ---
Author Organization [employer] Address [address] [place] [address] 7 [place] [address] Care Team Providers Care Fine Patcher Name Role Phone Hoda Hay MD Primary Care Provider [phone] Reason for Referral * Consultation (Routine) - Closed Specialty Diagnoses / Procedures Referred By Jhoana hernandez Referred To Contact General Surgery Diagnoses Lump in armpit, right Dakota Livingston MD [address] [place] [address] Phone: tel: fax: [facility] Surgeons [address] [place] [address] 3rd Floor [place], [place] Phone: tel: fax: Referral ID Status Reason Start Date Expiration Date V isits Requested Visits Authorized [id number] Closed Specialty Services Required 01/05/2025 01/05/2026 1 1 Encounter Details Date Type Department Care Team (Late st Contact Info) Description 01/05/2025 Orders Only [facility] [address] [place], [place] [phone] Dakota Livingston MD [address] [place], [place] [phone] Lump in armpit, right (Primary Dx) Social [...] General Surgery Outpatient Referral [facility]ine [facility] Expected: 01/05/2025 (Approximate), Expires: 01/05/2026 documented as of this encounter Visit Diagnoses Diagnosis Lump in armt, right- Primary documented in this encounter Additional Health Concerns Assessment Noted Time PHQ-9 Depression Total Score: 5 11/22/19 24 10:32 AM EDT documented as of this encounter Care Teams Fine Patcher Relationship Specialty Start Date End Date Hoda Hay MD [address] [place] [address] PCP - General Family Medicine 08/18/19 documented as of this encounter
[2025-03-16 16:02] LABS: Venous Lead <1.0 mcg/dL (<3.5)
== END 2025-03-13 15:17 | disposition home or self-care (01) ==
LOC: CF 15:16
PROVIDERS: Visit Provider Pediatrics
DX: Z77.011 Contact with and (suspected) exposure to lead (principal)
CPT/HCPCS: 36415; 83655; 85025